=== PATIENT | female | born 1995 | race Caucasian/White ===

== ENCOUNTER → 2018-07-01 | Outpatient (CLI) | payer BC ==
--- NOTE | 2018-07-01 16:02 | US ---
EXAMINATION TYPE: Transabdominal DATE OF EXAM: 07/01/2018 3:32 PM COMPARISON: NONE CLINICAL HISTORY: O00.09 ECTOPIC . Intermittent left pelvic pain x 7 weeks, 1 EXAM PERFORMED: Transabdominal (TA) EXAM MEASUREMENTS: GESTATIONAL AGE / DATING Physician Established: (7 weeks/5 days) EDC: 02/12/2019 Dates by LMP: (7 weeks/5 days) EDC: 02/12/2019 Dates by First Scan: This is 1st scan Dates by Current Scan for: ( 7 weeks/4 days) EDC: 02/13/2019 MATERNAL ANATOMY Uterus: 10.0 x 5.5 x 5.4cm Right Ovary: 3.1 x 2.0 x 2.3cm Left Ovary: 4.2 x 2.5 x 2.4cm Post CDS / Adnexa: wnl Presence of free fluid: no Presence of corpus luteal cyst: left ovary: 2.5 x 1.6 x 1.8cm hypoechoic area Presence of subchorionic bleed: no GESTATION / SURVEY CRL: 1.3cm (7 weeks/4 days) Yolk Sac (normal less than 6mm): 4.0mm Heart Rate: 154 bpm Rhythm: Normal IUP: Viable IUP Date of LMP: 05/08/2018 Beta HcG (if available): Not available at time of exam. IMPRESSION: Single intrauterine gestation estimated at 7 weeks 4 days gestation based on the crown-rump length me asurement. Cardiac activity measures 154 bpm.
== END | disposition home or self-care (01) ==
LOC: RADUSWWP 14:55
PROVIDERS: ATTEND Obstetrics & Gynecology
DX: O26.891 Other specified pregnancy related conditions, first trimester (principal); Z3A.01 Less than 8 weeks gestation of pregnancy
CPT/HCPCS: 76801

== ENCOUNTER → 2018-12-01 | Outpatient (CLI) | payer BC ==
--- NOTE | 2018-12-01 12:39 | US ---
EXAMINATION TYPE: US gallbladder DATE OF EXAM: 12/01/2018 COMPARISON: NONE CLINICAL HISTORY: 23-year-old female K81.9 Cholecystitis. EXAM MEASUREMENTS: Liver Length: 15.5 cm Gallbladder Wall: 0.3 cm CBD: 0.4 cm Right Kidney: 11.6 x 4.2 x 4.8 cm PIPE LINE MAINTENANCE SUPERVISOR NOTES: patient, large body habitus technically difficult study. Pancreas: Obscured by bowel gas Liver: appears wnl as seen, limited views, only able to scan intercostally, echogenic focus measuring 0.7 x 0.7 x 0.6cm, probable hemangioma. Gallbladder: wnl Evidence for sonographic Jimenez's sign: No CBD: very limited visualization. Visualized portion is normal caliber. Right Kidney: partially obscured by overlying bowel gas, no hydronephrosis. IMPRESSION: 1. Technical limitations as above. 2. 7 mm echogenic lesion in the left hepatic lobe likely represents a small hemangioma. Six-month fol low-up liver ultrasound recommended to reassess. 3. No cholelithiasis, acute cholecystitis, or biliary ductal dilatation.
== END | disposition home or self-care (01) ==
LOC: RADUSWWP 08:19
PROVIDERS: ATTEND Obstetrics & Gynecology
DX: K81.9 Cholecystitis, unspecified (principal)
CPT/HCPCS: 76705

== ENCOUNTER 2018-12-02 22:55 | Observation (INO) | payer BC ==
[2018-12-03] MEDS ORDERED: BUTORPHANOL 1 MG/ML 1 ML VIAL IV PRN ×2 (00:25→03:17)
[2018-12-03] MEDS: LACTATED RINGERS 1,000 ML IV SCH ×3 (00:29→23:08)
[2018-12-03 00:34] LABS: Basophils # (A) 0.1 k/uL (0-0.2); Basophils % (A) 0 %; Eosinophils # (A) 0.2 k/uL (0-0.7); Eosinophils % (A) 2 %; HCT 32.9 % (34.0-46.0); Lymphocytes # (A) 2.6 k/uL (1.0-4.8); Lymphocytes % (A) 22 %; MCH 28.8 pg (25.0-35.0); MCHC 33.6 g/dL (31.0-37.0); MCV 85.8 fL (80.0-100.0); Mean Platelet Volume 7.4; Monocytes # (A) 0.6 k/uL (0-1.0); Monocytes % (A) 5 %; Neutrophils % (A) 69 %; Platelet Count 373 k/uL (150-450); RBC 3.83 m/uL (3.80-5.40); RDW 14.1 % (11.5-15.5); WBC 11.5 k/uL (3.8-10.6)
[2018-12-03 00:37] LABS: Appearance,Urine Clear (Clear); Bilirubin,Urine Negative (Negative); Blood,Urine Negative (Negative); Color,Urine Light Yellow; Glucose,Urine (UA) Trace (Negative); Ketones,Urine Negative (Negative); Leukocyte Esterase,Urine Negative (Negative); Nitrite,Urine Negative (Negative); PH, Urine 5.5 (5.0-8.0); Protein,Urine Negative (Negative); Specific Gravity,Urine 1.013 (1.001-1.035); Urobilinogen,Urine <2.0 mg/dL (<2.0)
--- NOTE | 2018-12-03 00:42 | P.HPOB ---
History of Present Illness H&P Date: 12/02/18 Chief Complaint: Right upper quadrant pain: at Akira is a 23-year-old G3 1 P0 at 29 weeks 5 days gestation arrives complaining of severe right upper quadrant pain. She relates that the pain began early this afternoon and that it made her short of breath and she had a very difficult time functioning. She relates that for lunch she had a protein shake but the shortness of breath and the pain did produce some and then she had dinner at approximately 6:30 in the evening she 8 defense a lot is and shortly thereafter she began having severe pain with again acute shortness of breath difficult to catch her breath due to the pain. She had previously been seen in my office for this pain approximately 2 weeks ago we at that time had discussed and made point of having her try and eat very bland foods a possibility that this was gallbladder disease. She did actually felt a little bit better than her last appointment we did order an ultrasound of the gallbladder. Ultrasound gallbladder was done yesterday reveals no gallstones and was basically negative other than a 7 mm possible hemangioma in the left lobe of the liver. It does appear however, that her pain is directly related to her dietary intake, and she may very well have biliary dyskinesia or other GI issue. It does not appear that the is the cause of her pain at this time. We'll order H pylori testing and CMP with amylase lipase 2 try and get a better clarification for her pain. Laboratory is pending at this time. Vital signs are however stable. She is afebrile. She has no acute dyspnea and no shortness of breath at times in evaluating her. There is no chest pain there is no pain in her cardiac region no pain that it extends into the shoulders or into the neck or arms. Pain is almost exclusively epigastric and predominantly related to the right side. On physical exam heart regular, lungs clear and extremities are without pain. Abdomen is soft obese and she does have pain to the right upper quadrant over moving just medial towards the xiphoid process. It was noted on her monitor strip, she was having some irregular what appeared to be nonpainful contractions and therefore a digital exam was done and she is closed thick and very high. Cervix is posterior in the vagina. heart tones were in the 130s to 150s and appear reassuring. Assessment right upper quadrant abdominal pain without gallstones Plan observation and IV pain control tonight. Plan for general surgical consultation or GI consultation tomorrow if possible. We've previously discussed these consultations but she had declined earlier in the . Past Medical History History of Any Multi-Drug Resistant Organisms: None Reported Smoking Status: Never smoker Medications and Allergies Home Medications Medication Instructions Recorded Confirmed Type Pnv 11/Iron Fum/Folic Acid/Om3 1 each PO DAILY 12/02/18 12/02/18 History [Virt-Vikram Dha Softgel] Allergies Allergy/AdvReac Type Severity Reaction Status Date / Time No Known Allergies Allergy Verified 12/02/18 23:02 Exam Osteopathic Statement: *. No significant issues noted on an osteopathic structural exam other than those noted in the History and Physical/Consult. Intake and Output 12/02/18 12/02/18 12/03/18 14:59 22:59 06:59 Other: Weight 108.862 kg
[2018-12-03 00:47] LABS: ALT 11 U/L (9-52); AST 15 U/L (14-36); African American GFR (CKD) >90 (>60 ml/min/1.73 sqM); Albumin 3.7 g/dL (3.5-5.0); Alkaline Phosphatase 55 U/L (38-126); Amylase 53 U/L (30-110); Anion Gap 8 mmol/L; Blood Urea Nitrogen 11 mg/dL (7-17); Calcium 9.2 mg/dL (8.4-10.2); Carbon Dioxide 21 mmol/L (22-30); Chloride 107 mmol/L (98-107); Glucose 119 mg/dL (74-99); Potassium 4.3 mmol/L (3.5-5.1); Sodium 136 mmol/L (137-145); Total Bilirubin 0.1 mg/dL (0.2-1.3); Total Protein 6.6 g/dL (6.3-8.2)
[2018-12-03 01:59] VITALS: BMI 37.5
--- NOTE | 2018-12-03 08:14 | P.PN ---
Progress Note - Text Progress Note Date: 12/03/18 Patient seen and evaluated this morning, she relates that her pain is somewhat improved but to some degree still present. We are awaiting surgical consultation, she may need GI consultation or medical consultation if it doesn't seem that the diagnosis is biliary dyskinesia. However this morning, she feels improved and she does not have an appetite's we'll continue to be nothing by mouth until evaluated later.
--- NOTE | 2018-12-03 12:16 | P.GSCN ---
<Taylor Pierce - Last Filed: 12/03/18 12:07> History of Present Illness Consult date: 12/03/18 Reason for Consult: biliary dyskinesia Requesting physician: Presley Zamora History of present illness: CHIEF COMPLAINT: right upper quadrant pain HISTORY OF PRESENT ILLNESS: 23-year-old female who is currently 29 weeks who has been experiencing right upper quadrant pain intermittently over the last 4-5 weeks. Patient reports she has been expressing nausea and vomiting since the beginning of her but states it has been worse the last trimester. she does report some pain in the middle of her back. patient had a gallbladder ultrasound performed on 12/07/2018 revealing 7 mm echogenic lesion in the left hepatic lobe likely representing a small hemangioma. No cholelithiasis. No evidence for acute cholecystitis or biliary duct dilation. CMP was within normal limits. patient was recommended to follow a bland low-fat diet by her COMMERCIAL ILLUSTRATOR. Patient reports she saw a dietitian recently and was educated on her nutrition. Patient and reported the patient has been eating a lot of salads. However, when speaking to the patient's nurse the patient ate a large milkshake and enchiladas prior to this most recent episode of right upper quadrant pain. Patient reports her younger sister recently underwent cholecystectomy. She also reports that her mother had a cholecystectomy shortly after giving to her. PAST MEDICAL HISTORY: See list. PAST SURGICAL HISTORY: See list. SOCIAL HISTORY: No illicit drug use. REVIEW OF SYSTEMS: CONSTITUTIONAL: Denies fever or chills. HEENT: Denies blurred vision, vision changes, or eye pain. Denies hemoptysis CARDIOVASCULAR: Denies chest pain or pressure. RESPIRATORY: No shortness of breath. GASTROINTESTINAL: Refer to HPI for pertinent findings HEMATOLOGIC: Denies bleeding disorders. GENITOURINARY: Denies any blood in urine. SKIN: Denies pruitis. Denies rash. PHYSICAL EXAM: VITAL SIGNS: Reviewed. GENERAL: Well-developed in no acute distress. HEENT: No sclera icterus. Extraocular movements grossly intact. Moist buccal mucosa. Head is atraumatic, normocephalic. ABDOMEN: Patient currently . Soft. Patient with right upper quadrant tenderness with palpation. NEUROLOGIC: Alert and oriented. Cranial nerves II through XII grossly intact. ASSESSMENT: 1. Right upper quadrant pain 2. Suspected gallbladder dyskinesia, US negative for acute cholecystitis 3. Family history of gallbladder disease PLAN: 1. Ok for clear liquid diet at this time. Recommend low fat diet at time of discharge. 2. HIDA scan not recommended at this time secondary to 3. Further recommendations pending evaluation by Dr. Adam this afternoon Nurse practitioner note has been reviewed by physician. Signing provider agrees with the documented findings, assessment, and plan of care. Past Medical History Past Medical History: No Reported History History of Any Multi-Drug Resistant Organisms: None Reported Past Surgical History: No Surgical Hx Reported Past Anesthesia/Blood Transfusion Reactions: No Reported Reaction Past Psychological History: No Psychological Hx Reported Smoking Status: Never smoker Past Alcohol Use History: None Reported Past Drug Use History: None Reported - Past Family History Mother Family Medical History: No Reported History Medications and Allergies Home Medications Medication Instructions Recorded Confirmed Type Pnv 11/Iron Fum/Folic Acid/Om3 1 each PO DAILY 12/02/18 12/02/18 History [Virt-Vikram Dha Softgel] Allergies Allergy/AdvReac Type Severity Reaction Status Date / Time No Known Allergies Allergy Verified 12/02/18 23:02 Surgical - Exam Vital Signs Temp Pulse Resp BP Pulse Ox 98.3 F 96 16 110/52 98 12/03/18 08:00 12/03/18 08:00 12/03/18 08:00 12/03/18 08:00 12/03/18 08:00 Results - Labs 12/03/18 00:20 12/03/18 00:20 Abnormal Lab Results - Last 24 Hours (Table) 12/03/18 12/03/18 12/03/18 Range/Units 00:20 00:20 00:20 WBC 11.5 H (3.8-10.6) k/uL Hgb 11.0 L (11.4-16.0) gm/dL Hct 32.9 L (34.0-46.0) % Neutrophils # 8.0 H (1.3-7.7) k/uL Sodium 136 L (137-145) mmol/L Carbon Dioxide 21 L (22-30) mmol/L Glucose 119 H (74-99) mg/dL Total Bilirubin 0.1 L (0.2-1.3) mg/dL Urine Glucose (UA) Trace H (Negative) Diabetes panel 12/03/18 Range/Units 00:20 Sodium 136 L (137-145) mmol/L Potassium 4.3 (3.5-5.1) mmol/L Chloride 107 (98-107) mmol/L Carbon Dioxide 21 L (22-30) mmol/L BUN 11 (7-17) mg/dL Creatinine 0.63 (0.52-1.04) mg/dL Glucose 119 H (74-99) mg/dL Calcium 9.2 (8.4-10.2) mg/dL AST 15 (14-36) U/L ALT 11 (9-52) U/L Alkaline Phosphatase 55 (38-126) U/L Total Protein 6.6 (6.3-8.2) g/dL Albumin 3.7 (3.5-5.0) g/dL Calcium panel 12/03/18 Range/Units 00:20 Calcium 9.2 (8.4-10.2) mg/dL Albumin 3.7 (3.5-5.0) g/dL Pituitary panel 12/03/18 Range/Units 00:20 Sodium 136 L (137-145) mmol/L Potassium 4.3 (3.5-5.1) mmol/L Chloride 107 (98-107) mmol/L Carbon Dioxide 21 L (22-30) mmol/L BUN 11 (7-17) mg/dL Creatinine 0.63 (0.52-1.04) mg/dL Glucose 119 H (74-99) mg/dL Calcium 9.2 (8.4-10.2) mg/dL Adrenal panel 12/03/18 Range/Units 00:20 Sodium 136 L (137-145) mmol/L Potassium 4.3 (3.5-5.1) mmol/L Chloride 107 (98-107) mmol/L Carbon Dioxide 21 L (22-30) mmol/L BUN 11 (7-17) mg/dL Creatinine 0.63 (0.52-1.04) mg/dL Glucose 119 H (74-99) mg/dL Calcium 9.2 (8.4-10.2) mg/dL Total Bilirubin 0.1 L (0.2-1.3) mg/dL AST 15 (14-36) U/L ALT 11 (9-52) U/L Alkaline Phosphatase 55 (38-126) U/L Total Protein 6.6 (6.3-8.2) g/dL Albumin 3.7 (3.5-5.0) g/dL <Karlos Adam - Last Filed: 12/03/18 14:54> History of Present Illness History of present illness: As above. Patient with right upper quadrant pain. Ultrasound reviewed. No evidence of cholecystitis or gallstones currently. Resume diet. Begin him. Antiacids given the patient's personal history of peptic ulcer disease. Follow- up in the office as an outpatient. Surgical - Exam Vital Signs Temp Pulse Resp BP Pulse Ox 98.3 F 96 16 110/52 98 12/03/18 08:00 12/03/18 08:00 12/03/18 08:00 12/03/18 08:00 12/03/18 08:00 Results - Labs 12/03/18 00:20 12/03/18 00:20 Abnormal Lab Results - Last 24 Hours (Table) 12/03/18 12/03/18 12/03/18 Range/Units 00:20 00:20 00:20 WBC 11.5 H (3.8-10.6) k/uL Hgb 11.0 L (11.4-16.0) gm/dL Hct 32.9 L (34.0-46.0) % Neutrophils # 8.0 H (1.3-7.7) k/uL Sodium 136 L (137-145) mmol/L Carbon Dioxide 21 L (22-30) mmol/L Glucose 119 H (74-99) mg/dL Total Bilirubin 0.1 L (0.2-1.3) mg/dL Urine Glucose (UA) Trace H (Negative) Diabetes panel 12/03/18 Range/Units 00:20 Sodium 136 L (137-145) mmol/L Potassium 4.3 (3.5-5.1) mmol/L Chloride 107 (98-107) mmol/L Carbon Dioxide 21 L (22-30) mmol/L BUN 11 (7-17) mg/dL Creatinine 0.63 (0.52-1.04) mg/dL Glucose 119 H (74-99) mg/dL Calcium 9.2 (8.4-10.2) mg/dL AST 15 (14-36) U/L ALT 11 (9-52) U/L Alkaline Phosphatase 55 (38-126) U/L Total Protein 6.6 (6.3-8.2) g/dL Albumin 3.7 (3.5-5.0) g/dL Calcium panel 12/03/18 Range/Units 00:20 Calcium 9.2 (8.4-10.2) mg/dL Albumin 3.7 (3.5-5.0) g/dL Pituitary panel 12/03/18 Range/Units 00:20 Sodium 136 L (137-145) mmol/L Potassium 4.3 (3.5-5.1) mmol/L Chloride 107 (98-107) mmol/L Carbon Dioxide 21 L (22-30) mmol/L BUN 11 (7-17) mg/dL Creatinine 0.63 (0.52-1.04) mg/dL Glucose 119 H (74-99) mg/dL Calcium 9.2 (8.4-10.2) mg/dL Adrenal panel 12/03/18 Range/Units 00:20 Sodium 136 L (137-145) mmol/L Potassium 4.3 (3.5-5.1) mmol/L Chloride 107 (98-107) mmol/L Carbon Dioxide 21 L (22-30) mmol/L BUN 11 (7-17) mg/dL Creatinine 0.63 (0.52-1.04) mg/dL Glucose 119 H (74-99) mg/dL Calcium 9.2 (8.4-10.2) mg/dL Total Bilirubin 0.1 L (0.2-1.3) mg/dL AST 15 (14-36) U/L ALT 11 (9-52) U/L Alkaline Phosphatase 55 (38-126) U/L Total Protein 6.6 (6.3-8.2) g/dL Albumin 3.7 (3.5-5.0) g/dL
[2018-12-03] MEDS: FAMOTIDINE 20 MG/2 ML VIAL IV SCH (16:42)
[2018-12-03 20:01] VITALS: BP 120/60; PULSE 95; RESP 18; TEMP 97.8
[2018-12-04] MEDS: FAMOTIDINE 20 MG/2 ML VIAL IV SCH (04:35)
--- NOTE | 2018-12-04 09:12 | P.DS ---
Providers Date of admission: 12/03/18 00:47 Expected date of discharge: 12/04/18 Attending physician: Presley Zamora Consults: 12/03/18 00:42 Consult Physician Urgent Consulting Provider: Karlos Adam Consult Reason/Comments: biliary dyskinesia Do you want consulting provider notified?: Yes Primary care physician: Stated None Hospital Course: Patient seen and evaluated. She relates that she is feeling improved and is tolerating a diet. We'll plan to discharge her to home today. Prescription for [place] and Pepcid provided. She is aware to use [place] only extremely sparingly and only if in severe pain to try and keep her from having to come to the hospital. Her vital signs are otherwise stable and afebrile. Heart regular, lungs clear, extremities without pain. Abdomen soft nontender. Does still have some right upper quadrant pain please see surgical evaluation for information regarding this. Assessment intrauterine at 30 weeks with suspected biliary dyskinesia or peptic ulcer. Plan discharged home follow up with me in 1 week. Patient Condition at Discharge: Good Plan - Discharge Summary New Discharge Prescriptions: New Famotidine [Pepcid] 20 mg PO DAILY #30 tablet HYDROcodone/APAP 5-325MG [[place] 5-325] 1 tab PO Q4HR PRN #30 tab PRN Reason: Pain Famotidine [Pepcid] 20 mg PO BID #60 tablet No Action Pnv 11/Iron Fum/Folic Acid/Om3 [Virt-Vikram Dha Softgel] 1 each PO DAILY Discharge Medication List Pnv 11/Iron Fum/Folic Acid/Om3 [Virt-Vikram Dha Softgel] 1 each PO DAILY 12/02/18 [History] Famotidine [Pepcid] 20 mg PO DAILY #30 tablet 12/03/18 [Rx] Famotidine [Pepcid] 20 mg PO BID #60 tablet 12/04/18 [Rx] HYDROcodone/APAP 5-325MG [[place] 5-325] 1 tab PO Q4HR PRN #30 tab 12/04/18 [Rx] Follow up Appointment(s)/Referral(s): Karlos Adam MD [Medical Doctor] - As Needed (follow up after delivery for further evaluation) Discharge Disposition: HOME SELF-CARE
[2018-12-04] MEDS ORDERED: FAMOTIDINE 20 MG TAB PO SCH (21:00)
== END 2018-12-04 09:45 | disposition home or self-care (01) ==
LOC: FBPOP 22:55 → 4FBP 12-03 00:47
PROVIDERS: ADMIT Obstetrics & Gynecology; ATTEND Obstetrics & Gynecology
DX: O26.613 Liver and biliary tract disorders in pregnancy, third trimester (principal); Z3A.29 29 weeks gestation of pregnancy; K82.8 Other specified diseases of gallbladder; O99.213 Obesity complicating pregnancy, third trimester; K76.9 Liver disease, unspecified; O21.2 Late vomiting of pregnancy; Z87.11 Personal history of peptic ulcer disease
CPT/HCPCS: 59025; 96376 ×2; 99214; 96361; 96374 ×2; 96375; 87338; 80053; 82150; 83690; 85025; 81003; G0378 ×2; J0595

== ENCOUNTER 2019-01-25 22:15 | Outpatient (CLI) | payer BC ==
[2019-01-25 22:43] LABS: Appearance,Urine Clear (Clear); Bacteria,Urine Rare /hpf; Bilirubin,Urine Negative (Negative); Blood,Urine Negative (Negative); Color,Urine Colorless; Glucose,Urine (UA) Negative (Negative); Ketones,Urine Negative (Negative); Leukocyte Esterase,Urine Large (Negative); Nitrite,Urine Negative (Negative); PH, Urine 5.5 (5.0-8.0); Protein,Urine Negative (Negative); RBC,Urine 1 /hpf (0-5); Specific Gravity,Urine 1.005 (1.001-1.035); Squamous Epithelial Cell,Urine 3 /hpf (0-4); Urobilinogen,Urine <2.0 mg/dL (<2.0); WBC,Urine 8 /hpf (0-5)
[2019-01-26] LABS: Basophils % (A) 0 %; Eosinophils # (A) 0.1 k/uL (0-0.7); Eosinophils % (A) 1 %; HCT 31.8 % (34.0-46.0); HGB 10.7 gm/dL (11.4-16.0); Hypochromasia Slight; Lymphocytes # (A) 2.3 k/uL (1.0-4.8); Lymphocytes % (A) 21 %; MCHC 33.8 g/dL (31.0-37.0); Mean Platelet Volume 7.5; Monocytes # (A) 0.6 k/uL (0-1.0); Monocytes % (A) 6 %; Neutrophils # (A) 7.7 k/uL (1.3-7.7); Neutrophils % (A) 70 %; Platelet Count 350 k/uL (150-450); Poikilocytosis Slight; RBC 3.97 m/uL (3.80-5.40); RDW 15.2 % (11.5-15.5)
[2019-01-26 00:19] LABS: ALT 21 U/L (9-52); AST 20 U/L (14-36); African American GFR (CKD) >90 (>60 ml/min/1.73 sqM); Blood Urea Nitrogen 18 mg/dL (7-17); LDH 532 U/L (313-618); Uric Acid 5.7 mg/dL (3.7-7.4)
[2019-01-26 03:45] VITALS: BP 129/77; PULSE 102; RESP 18; TEMP 98.4
--- NOTE | 2019-01-26 09:27 | P.MSEPDOC ---
Presenting Problems - Arrival Data Date of Arrival on Unit: 01/25/19 Time of Arrival on Unit: 22:15 Mode of Transport: Ambulatory - Complaint OB-Reason for Admission/Chief Complaint: Acute Nausea/Vomiting, Headache, Visual Disturbances, Elevated Blood Pressure Comment: pt presents to triage with complaints of N/V/D since Friday on way home from. appt. Dr Stephenson is main Dr. PT talked to Dr Carroll today. pt states is short of breath. took bp at home tonight and 132/91 then 148/103 then 152/109 Medical History - Information : 1 Para: 0 Term: 0 : 0 Abortions: Spontaneous or Elective: 0 Number of Living Children: 0 - Gestational Age Gestational Age by GROVER (wks/days): 37 Weeks and 4 Days - History Complications: Other Comment: scheduled c/s for 02/08 due to macrosomia Review of Systems - Review of Systems Constitutional: No problems Breast: No problems ENT: No problems Cardiovascular: No problems Respiratory: No problems Gastrointestinal: No problems Genitourinary: No problems Musculoskeletal: No problems Neurological: No problems Skin: No problems Vital Signs - Temperature Temperature: 98.4 F Temperature Source: Oral - Pulse Right Pulse Rate: 102 Pulse Assessment Method: Automatic Cuff - Respirations Respiratory Rate: 18 O2 Sat by Pulse Oximetry: 98 - Blood Pressure Left Arm Blood Pressure: 129/77 Blood Pressure Mean: 94 Blood Pressure Source: Automatic Cuff - Comment Vital Signs Comment: multiple b/ps done during stay with highest being 140/91 right after vag exam and the rest 120s to 130s / 70s and 80s. see Obix for exact. Medical Screen Scoring (Pre) - Cervical Exam Dilation: 0 cm = 0 - Uterine Contractions Frequency: > 5 minutes apart = 1 Duration: N/A Intensity: N/A - Maternal Vital Signs Maternal Temperature: N/A Maternal Blood Pressure: N/A Signs of Preeclampsia: N/A Maternal Respirations: N/A - Maternal Trauma Maternal Trauma: N/A - Assessment - Baby A Baseline FHR: 140 Heart Rate - NICHD Category: Category I (Normal) = 0 NST: Reactive - Total Score - Baby A Total Score - Baby A: 1 - Total Score - Baby B Total Score - Baby B: 1 - Total Score - Baby C Total Score - Baby C: 1 - Level of Risk - Baby A Level of Risk - Baby A: Low (0-5) - Level of Risk - Baby B Level of Risk - Baby B: Low (0-5) - Level of Risk - Baby C Level of Risk - Baby C: Low (0-5) Physician Notification (Pre) - Physician Notified Physician Notified Date: 01/26/19 Physician Notified Time: 01:25 Physician/Practitioner Notifed:: Dr Carroll New Order Received: Yes - Notification Comment Comment: Dr Carroll updated by phone of all labs, including urine protein/creatine ratio of 0.58 but all others within normal range for preg. cervix clsed. pt only feeling mild cramping with the ctxs she is having. N/V/D/SOB/Blurry vision all resolved at present. pt has appt with Dr Zamora tomorrow at 1pm. dc order received with instructions to keep tomorrows appt and return with any worsening of symptoms. also be advised home bp cuff. is most likely innaccurate Disposition - Disposition OB Disposition: Discharge to home Discharge Date: 01/26/19 Discharge Time: 01:28 I agree with the RN Medical Screening Exam: Yes Risk & Benefit of care provided described in d/c instruction: Yes Diagnosis: NAUSEA WITH VOMITING, UNSPECIFIED
== END 2019-01-26 01:28 | disposition home or self-care (01) ==
LOC: FBPOP 22:15
PROVIDERS: ATTEND Obstetrics & Gynecology
DX: O21.9 Vomiting of pregnancy, unspecified (principal); Z3A.37 37 weeks gestation of pregnancy
CPT/HCPCS: 59025; 81001; 82565; 82570; 83615; 84156; 84450; 84460; 84520; 84550; 85025; 99213

== ENCOUNTER 2019-01-26 14:31 | Inpatient (IN) | payer BC ==
[2019-01-26 18:12] VITALS: BMI 40.7
[2019-01-26] MEDS ORDERED: CITRIC ACID-SODIUM CITRATE 15 ML CUP PO ONE (18:15)
[2019-01-26] MEDS ORDERED: ceFAZolin 3 GM in SODIUM CHLORIDE 0.9% 100 ML IVPB ONE (18:15)
[2019-01-26] MEDS ORDERED: LACTATED RINGERS 1,000 ML IV ONE (18:15)
[2019-01-26 18:42] LABS: Basophils # (A) 0.1 k/uL (0-0.2); Basophils % (A) 1 %; Eosinophils # (A) 0.1 k/uL (0-0.7); Eosinophils % (A) 1 %; HCT 33.4 % (34.0-46.0); HGB 11.2 gm/dL (11.4-16.0); Hypochromasia Slight; Lymphocytes # (A) 1.8 k/uL (1.0-4.8); Lymphocytes % (A) 15 %; MCH 26.7 pg (25.0-35.0); MCHC 33.5 g/dL (31.0-37.0); MCV 79.7 fL (80.0-100.0); Mean Platelet Volume 7.4; Monocytes # (A) 0.5 k/uL (0-1.0); Monocytes % (A) 4 %; Neutrophils # (A) 9.9 k/uL (1.3-7.7); Neutrophils % (A) 79 %; Platelet Count 355 k/uL (150-450); RBC 4.19 m/uL (3.80-5.40); RDW 14.1 % (11.5-15.5); WBC 12.6 k/uL (3.8-10.6)
[2019-01-26] MEDS ORDERED: MORPHINE SULFATE (PF) 0.3 MG/0.3 ML SYR ONE (19:08)
[2019-01-26] MEDS ORDERED: OXYTOCIN 10 UNIT/ML 1 ML VIAL ONE (19:08)
[2019-01-26] MEDS ORDERED: ONDANSETRON 4 MG/2 ML VIAL ONE (19:08)
[2019-01-26] MEDS ORDERED: NALBUPHINE 10 MG/ML (1 ML AMP) ONE (19:08)
[2019-01-26] MEDS ORDERED: KETOROLAC 30 MG/ML 1 ML VIAL ONE (19:08)
[2019-01-26] MEDS ORDERED: diphenhydrAMINE 25 MG CAP PO PRN (19:57)
[2019-01-26] MEDS ORDERED: ONDANSETRON 4 MG/2 ML VIAL IVP PRN (19:57)
[2019-01-26] MEDS ORDERED: SIMETHICONE 80 MG CHEWABLE PO PRN (19:57)
[2019-01-26] MEDS ORDERED: METOCLOPRAMIDE 5 MG/ML 2 ML VIAL IVP PRN (19:57)
[2019-01-26] MEDS ORDERED: MEASLES-MUMPS-RUBELLA VACC/PF 12,500 UNIT/0.5 ML VIAL SQ ONE (19:57)
[2019-01-26] MEDS ORDERED: ACETAMINOPHEN TAB 325 MG TAB PO PRN (19:57)
[2019-01-26] MEDS ORDERED: diphenhydrAMINE 50 MG CAP PO PRN (19:57)
[2019-01-26] MEDS ORDERED: diphenhydrAMINE 50 MG/ML 1 ML VIAL IVP PRN ×2 (19:57)
[2019-01-26] MEDS ORDERED: ZOLPIDEM 5 MG TAB PO PRN (19:57)
[2019-01-26] MEDS ORDERED: NALOXONE 0.4 MG/ML 1 ML VIAL IV PRN (19:57)
[2019-01-26] MEDS ORDERED: LACTATED RINGERS 1,000 ML IV SCH (20:00)
--- NOTE | 2019-01-26 20:04 | P.HPOB ---
History of Present Illness H&P Date: 01/26/19 Chief Complaint: Intrauterine : Macrosomia: Gestational hypertension Patient is a 23-year-old at 37 weeks 40s gestation who was seen in the office today with mild elevation blood pressure at 140 she had a lipid blood pressure home last night of 140/109. She was seen in triage had normal preeclamptic labs and normal blood pressures during that stay. She was sent over to the hospital for continued monitoring and during the course of the next proximally 2 hours she had at least 2 pressures that were both either 140 or 90. She also had some mild symptoms she had a mild headache but certainly no severe headache indicative of preeclampsia she had however significant swelling 2-3+ pitting edema and 3+ deep tendon reflexes. She had trace protein in her P today and negative last night. Due to the findings and symptoms consistent with gestational hypertension she was admitted for primary section for macrosomia. Ultrasound done in late December showed baby was above the 99th percentile for dates. She had 09 November the had shown approximately 84th percentile. Her pertinent labs. The did include A+ blood type, Rh antibody was negative, rubella was nonimmune and hepatitis B surface and was negative. She did have a positive group B strep status but is intact. It is noted that she did fail her 1 hour Glucola screen but passed her 3 her Glucola screening with only one abnormal value and was sent to diabetic education/nutrition for evaluation of diet. She also had significant right upper quadrant pain in November with suspicion of biliary dyskinesia. She was seen by general surgery and a full evaluation was done at that time. 8 change in her dietary habits did help resolve this symptomatology throughout the remainder of the . She also had an episode where she has significant itching was put on a steroid cream for that itching but this also resolved. At this time she is feeling well although somewhat anxious prior to the section, she is also having contractions. She relates that she had been throwing up and had diarrhea over the last 1 or 2 days as well just to save some of this isn't flulike symptoms but at up and about as a precaution particular with macrosomia and other problems and competitions through the we will proceed with a primary section tonight. On physical exam vital signs are otherwise stable. Heart regular, lungs clear, extremities without pain. Abdomen is soft gravid uterus is noted. There is 2+ to 3+ pitting edema and 3+ deep tendon reflexes as noted previously. Assessment intrauterine at term with macrosomia and gestational hypertension Plan primary low transverse section Past Medical History Past Medical History: No Reported History History of Any Multi-Drug Resistant Organisms: None Reported Past Surgical History: No Surgical Hx Reported Past Anesthesia/Blood Transfusion Reactions: No Reported Reaction Past Psychological History: No Psychological Hx Reported Smoking Status: Never smoker Past Alcohol Use History: None Reported Past Drug Use History: None Reported - Past Family History Mother Family Medical History: No Reported History Medications and Allergies Home Medications Medication Instructions Recorded Confirmed Type Pnv,Calcium 72/Iron/Folic Acid 1 tab PO DAILY 01/26/19 01/26/19 History [ Plus Tablet] Allergies Allergy/AdvReac Type Severity Reaction Status Date / Time No Known Allergies Allergy Verified 01/26/19 18:06 Exam Osteopathic Statement: *. No significant issues noted on an osteopathic structural exam other than those noted in the History and Physical/Consult. Vital Signs Temp Pulse Resp BP Pulse Ox 01/26/19 18:07 97.7 F 110 H 18 138/71 01/26/19 15:43 98.5 F 100 20 127/80 98 Intake and Output 01/26/19 01/26/19 01/26/19 06:59 14:59 22:59 Other: Weight 121.563 kg Results Result Diagrams: 01/26/19 06:15 Abnormal Lab Results - Last 24 Hours (Table) 01/26/19 Range/Units 06:15 WBC 12.6 H (3.8-10.6) k/uL Hgb 11.2 L (11.4-16.0) gm/dL Hct 33.4 L (34.0-46.0) % MCV 79.7 L (80.0-100.0) fL Neutrophils # 9.9 H (1.3-7.7) k/uL
--- NOTE | 2019-01-26 20:30 | P.OP ---
Date of Procedure: 01/26/19 Preoperative Diagnosis: Intrauterine at term: Macrosomia: Gestational hypertension Postoperative Diagnosis: Same Procedure(s) Performed: Primary low transverse section Anesthesia: spinal Surgeon: Presley Zamora Dye Stand Loader #1: Mena Peck Estimated Blood Loss (ml): 600 IV fluids (ml): 1,000 Urine output (ml): 200 Pathology: other (Placenta) Condition: stable Disposition: floor Operative Findings: Male scores of 8 and 9 at one and 5 minutes Lopez weight was 10 lbs. 6 oz. Description of Procedure: Patient was taken to the operating suite where a spinal anesthetic was found be adequate. She was prepped and draped in the normal sterile fashion and placed in the dorsal supine position with leftward tilt. Initially a Pfannenstiel skin incision was made this incision was then carried through to underlying layer of the fascia was second knife. Fascia was then nicked in the midline and this opening was extended laterally with Mina scissors. Superior and inferior aspect of this incision were then grasped tented up and bluntly and sharply dissected off the rectus muscles. Rectus muscles were then divided the midline and blunt dissection through the peritoneum was made. This opening was then extended superiorly and inferiorly with good visualization of both bowel bladder. Bladder flap was then identified and entered with Metzenbaum scissors. This opening was then extended across face of the uterus with Metzenbaum scissors and her bladder flap was digitally created. Knife was then used to incise uterus this opening was then fully developed with hemostat and extended bluntly. Head was then H medically delivered without difficulty and anterior posterior shoulders were then easily delivered following bulb suctioning of both mouth and nares. Once baby was fully delivered umbilical cord was clamped and cut in usual fashion an nursery personnel was present and assumed care. Placenta was then delivered intact and Pitocin was added to the IV. Uterus was then exteriorized cleared of clots and debris and closed in 2 layers with 0 Vicryl suture. Once hemostasis was obtained 3-0 Vicryl reapproximated the bladder flap and blood and debris was suctioned from the posterior cul-de-sac. Uterus was then reinserted into the abdomen and peritoneal layer was reapproximated with 0 Vicryl suture. Fascial layer was closed with 0 Vicryl suture. One layer of 3-0 Vicryl was placed in the deep subcuticular tissues to reapproximate the skin. Skin was then closed with 3-0 Vicryl subcuticular. Sponge, lap and needle counts were all correct 2. Patient was then taken to the recovery room in stable and satisfactory condition.
[2019-01-26] MEDS: SENNOSIDES-DOCUSATE SODIUM 1 EACH TAB PO SCH (23:06)
[2019-01-27] MEDS: KETOROLAC 30 MG/ML 1 ML VIAL IVP PRN ×3 (01:53→14:08)
[2019-01-27 07:27] LABS: Basophils % (A) 0 %; Eosinophils # (A) 0.1 k/uL (0-0.7); Eosinophils % (A) 1 %; HCT 26.6 % (34.0-46.0); Hypochromasia Slight; Lymphocytes # (A) 1.4 k/uL (1.0-4.8); Lymphocytes % (A) 13 %; MCHC 33.6 g/dL (31.0-37.0); MCV 80.3 fL (80.0-100.0); Mean Platelet Volume 7.9; Monocytes # (A) 0.5 k/uL (0-1.0); Monocytes % (A) 5 %; Neutrophils # (A) 9.1 k/uL (1.3-7.7); Neutrophils % (A) 81 %; Platelet Count 251 k/uL (150-450); Poikilocytosis Slight; RBC 3.31 m/uL (3.80-5.40); RDW 15.1 % (11.5-15.5); WBC 11.2 k/uL (3.8-10.6)
[2019-01-27 07:51] LABS: HGB 8.9 gm/dL (11.4-16.0)
[2019-01-27] MEDS: SENNOSIDES-DOCUSATE SODIUM 1 EACH TAB PO SCH ×2 (08:16→20:26)
--- NOTE | 2019-01-27 08:24 | P.PNOBGPC ---
Subjective - Subjective Principal diagnosis: Postoperative want Interval history: Overall doing very well this morning. Involuting, starting to void, and tolerating liquid diet. Vital signs stable afebrile. Patient reports: Reports appetite normal : doing well Objective - Vital Signs Latest vital signs: Vital Signs Temp Pulse Resp BP Pulse Ox 01/27/19 04:00 97.6 F 81 16 130/69 96 01/27/19 01:30 98.1 F 78 17 124/79 97 01/26/19 22:07 98.2 F 87 18 123/76 99 01/26/19 21:37 98.2 F 76 18 122/75 99 01/26/19 21:07 98.2 F 81 18 123/64 97 01/26/19 20:52 96.2 F L 74 17 117/65 98 01/26/19 20:37 92 18 114/60 97 01/26/19 20:22 96.1 F L 79 18 117/67 98 01/26/19 20:07 96.8 F L 85 18 113/73 98 01/26/19 18:07 97.7 F 110 H 18 138/71 01/26/19 15:43 98.5 F 100 20 127/80 98 Intake and Output 01/26/19 01/27/19 01/27/19 22:59 06:59 14:59 Intake Total 200 Output Total 150 200 Balance -150 0 Intake: Oral 200 Output: Urine 150 200 Uretheral (Rod) 200 Other: Voiding Method Indwelling Catheter - Exam Lungs: bilateral: normal Chest: Normal S1, Normal S2 Extremities: Present: normal Abdomen: Present: normal appearance, soft. Absent: distention, tenderness Incision: Present: normal, dry, intact Uterus: Present: normal, firm - Labs Labs: Abnormal Lab Results - Last 24 Hours (Table) 01/26/19 01/27/19 Range/Units 06:15 06:43 WBC 12.6 H 11.2 H (3.8-10.6) k/uL RBC 3.31 L (3.80-5.40) m/uL Hgb 11.2 L 8.9 L D (11.4-16.0) gm/dL Hct 33.4 L 26.6 L (34.0-46.0) % MCV 79.7 L (80.0-100.0) fL Neutrophils # 9.9 H 9.1 H (1.3-7.7) k/uL
--- NOTE | 2019-01-27 13:33 | P.PN ---
Subjective Progress Note Date: 01/27/19 Patient was given intrathecal Duramorph on 01/26/19 for . This morning, vital signs are stable. The patient denies itching, nausea, vomiting, urinary retention, excessive sedation, respiratory depression, or headache. Patient endorses mild back pain from needle placement but also denies new-onset fever, weakness, or bowel/bladder incontinence. Her pain score is: 1 Pain medications per primary service; please call back with any further questions. Sony Rutledge MD Objective - Vital Signs Vital signs: Vital Signs Temp 97.6 F 01/27/19 08:00 Pulse 96 01/27/19 08:00 Resp 20 01/27/19 08:00 BP 131/79 01/27/19 08:00 Pulse Ox 97 01/27/19 08:00 Intake & Output 01/26/19 01/27/19 01/27/19 18:59 06:59 18:59 Intake Total 200 Output Total 350 20 Balance -150 -20 Weight 121.563 kg Intake: Oral 200 Output: Urine 350 20 Uretheral (Rod) 200 Other: Voiding Method Indwelling Catheter # Voids 1 - Labs CBC & Chem 7: 01/27/19 06:43 Labs: Abnormal Lab Results - Last 24 Hours (Table) 01/26/19 01/27/19 Range/Units 06:15 06:43 WBC 12.6 H 11.2 H (3.8-10.6) k/uL RBC 3.31 L (3.80-5.40) m/uL Hgb 11.2 L 8.9 L D (11.4-16.0) gm/dL Hct 33.4 L 26.6 L (34.0-46.0) % MCV 79.7 L (80.0-100.0) fL Neutrophils # 9.9 H 9.1 H (1.3-7.7) k/uL
[2019-01-27] MEDS: IBUPROFEN 600 MG TAB PO PRN (20:25)
[2019-01-27] MEDS: HYDROcodone/APAP 7.5-325MG 1 EACH TAB PO PRN (23:38)
[2019-01-28] MEDS: IBUPROFEN 600 MG TAB PO PRN ×2 (05:29→12:50)
--- NOTE | 2019-01-28 08:33 | P.PNOBGPC ---
Subjective - Subjective Principal diagnosis: Status post primary section postoperative day #2 Interval history: Patient is doing okay. She is passing flatus but no bowel movement yet. Lochia is decreasing. Pain is fairly well controlled with alternating her pain medications. She stated she did have a rough night last night though. Patient reports: Reports appetite normal, Reports voiding normally, Reports pain well controlled, Reports ambulating normally : doing well Objective - Vital Signs Latest vital signs: Vital Signs Temp Pulse Resp BP Pulse Ox 01/28/19 00:00 98.1 F 96 16 108/53 01/27/19 20:00 98.5 F 103 H 17 120/68 01/27/19 16:00 98.9 F 90 20 126/69 97 01/27/19 12:00 97.8 F 89 20 130/80 97 Intake and Output 01/27/19 01/28/19 01/28/19 22:59 06:59 14:59 Intake Total 240 Output Total 1500 Balance -1260 Intake: Oral 240 Output: Urine 1500 Other: Voiding Method Toilet # Voids 1 1 - Exam Extremities: Present: edema. Absent: tenderness Abdomen: Present: normal appearance, soft (Positive bowel sounds 4). Absent: distention, tenderness Incision: Present: normal, dry, intact. Absent: erythematous Uterus: Present: normal, firm. Absent: tenderness Assessment and Plan Assessment: Status post primary section postoperative day #2 Plan: Continue with postoperative and care. Anticipate possible discharge home tomorrow.
[2019-01-28] MEDS: HYDROcodone/APAP 7.5-325MG 1 EACH TAB PO PRN ×2 (09:14→17:25)
[2019-01-28] MEDS: SENNOSIDES-DOCUSATE SODIUM 1 EACH TAB PO SCH (09:14)
[2019-01-28 09:44] VITALS: RESP 18
[2019-01-28 15:48] VITALS: BP 132/72; PULSE 90; TEMP 98.5
--- NOTE | 2019-01-28 17:09 | P.DS ---
Providers Date of admission: 01/26/19 14:31 Expected date of discharge: 01/28/19 Attending physician: Presley Zamora Primary care physician: Stated None Hospital Course: This is a 23-year-old female 1 para 0 at 37-4/7 weeks who presented for section due to gestational hypertension and macrosomia. She underwent a primary low transverse section and delivered a viable male on 01/26/2019 with scores of 8 at 1 minute and 9 at 5 minutes and weight of 10 lbs. 6 oz. Please see history and physical for details the patient admission. Her course has been essentially uncomplicated. Her blood pressures have been normal. Vital signs are stable. Abdomen is soft with positive bowel sounds 4. Incision is clean dry and intact with Steri-Strips in place. Extremities show negative Homans. Impression is status pos primary section postoperative day #2. Plan is to discharge home today per patient request. She will be given a prescription for ibuprofen and [place]. She has signed a opioid start talking form and has been counseled on narcotic use. She is advised to follow up with Dr. Zamora in the office in 1 week. She is advised to call the office if she has any further questions or concerns prior to her appointment time. Procedures: Primary low transverse section Patient Condition at Discharge: Stable Plan - Discharge Summary New Discharge Prescriptions: New Ibuprofen [Motrin] 600 mg PO Q6HR PRN #60 tab PRN Reason: Mild Pain Or Fever >= 100.5 HYDROcodone/APAP 7.5-325MG [[place] 7.5-325] 1 each PO Q6H PRN #20 tab PRN Reason: Severe Pain Continue Pnv,Calcium 72/Iron/Folic Acid [ Plus Tablet] 1 tab PO DAILY Discharge Medication List Pnv,Calcium 72/Iron/Folic Acid [ Plus Tablet] 1 tab PO DAILY 01/26/19 [History] HYDROcodone/APAP 7.5-325MG [[place] 7.5-325] 1 each PO Q6H PRN #20 tab 01/28/19 [Rx] Ibuprofen [Motrin] 600 mg PO Q6HR PRN #60 tab 01/28/19 [Rx] Follow up Appointment(s)/Referral(s): Presley Zamora DO [Doctor of Osteopathic Medicine] - 1 Week Activity/Diet/Wound Care/Special Instructions: Instructions 1. Do not begin any exercise program for 3 weeks. 2. Do not resume sexual relations for 3 weeks or longer if uncomfortable. 3. You may take tub baths or showers at any time. 4. You may use tampons if desired after 3 weeks. 5. Keep the area of episiotomy (stitches) clean and dry. 6. If you are not nursing, wear a good fitting, supportive bra during the day and limit fluid intake for at least 1 week to prevent breast engorgement. 7. Call the office, [phone], within the next week to make appointment for your 6 week checkup if it has not already been made. 8. Report any of the following occurrences to the doctor promptly: a. Heavy, excessive bleeding b. Chills, fever c. Burning or frequency of urination d. Pain or redness and breasts if nursing e. Increasing pain or swelling in episiotomy (stitches). In addition to the above instructions, the following additional should be followed: 1. No heavy lifting or straining (exercising) until after 6 week checkup. 2. Keep abdominal incision clean and dry: You may wear a dressing if more comfortable. 3. Make office appointment for 10 days after going home or as instructed by her doctor. Discharge Disposition: HOME SELF-CARE
== END 2019-01-28 17:35 | disposition home or self-care (01) | DRG 788 ==
LOC: 4FBP 14:31
PROVIDERS: ADMIT Obstetrics & Gynecology; ATTEND Obstetrics & Gynecology
PROC: 10D00Z1 Extraction of Products of Conception, Low, Open Approach (ICD-10-PCS; principal; 2019-01-26 19:23)
DX: O36.63X0 Maternal care for excessive fetal growth, third trimester, not applicable or unspecified (principal); O13.3 Gestational [pregnancy-induced] hypertension without significant proteinuria, third trimester; Z3A.37 37 weeks gestation of pregnancy; Z37.0 Single live birth
CPT/HCPCS: 85025; 86850; 86900; 86901; 88307; 90707

== ENCOUNTER → 2019-10-14 | Outpatient (CLI) | payer BC ==
--- NOTE | 2019-10-14 08:03 | US ---
EXAMINATION TYPE: US abdomen complete DATE OF EXAM: 10/14/2019 COMPARISON: NONE CLINICAL HISTORY: R19.09 UMBILICAL MASS,R10.11 RUQ PAIN. abdominal pain near umbilicus, nausea EXAM MEASUREMENTS: Liver Length: 18.3 cm Gallbladder Wall: 0.2 cm CBD: 0.4 cm Spleen: 11.1 cm Right Kidney: 11.1 x 3.9 x 4.7 cm Left Kidney: 10.0 x 4.9 x 4.6 cm Pancreas: Obscured by bowel gas Liver: There is increased echogenicity of the hepatic parenchyma with diminished visualization of th e portal triads most commonly relating to hepatic steatosis and limiting evaluation for underlying he patic masses. Gallbladder: no evidence of stones Evidence for sonographic Jimeenz's sign: no CBD: appears wnl Spleen: wnl Right Kidney: no evidence of hydronephrosis Left Kidney: no evidence of hydronephrosis Upper IVC: wnl Abd Aorta: visualized portions appear wnl The intrahepatic portion of the IVC and proximal abdominal aorta are within normal limits. There is no evidence of cholelithiasis. Common bile duct is unremarkable. The spleen is unremarkable. Kidney s are symmetric and free of hydronephrosis. No renal lesions are seen. Periumbilical region was scan kwaku. Bowel is seen with no suspicious sonographic finding. IMPRESSION: 1. Sonographic findings most commonly related to hepatic steatosis. Correlate with liver function erik ts. 2. Obscuration of the pancreas by bowel gas. 3. No suspicious sonographic finding in the periumbilical region.
[2019-10-14 09:14] LABS: Basophils # (A) 0.1 k/uL (0-0.2); Basophils % (A) 1 %; Eosinophils # (A) 0.3 k/uL (0-0.7); Eosinophils % (A) 4 %; HCT 39.1 % (34.0-46.0); HGB 13.1 gm/dL (11.4-16.0); Lymphocytes % (A) 40 %; MCH 27.6 pg (25.0-35.0); MCHC 33.4 g/dL (31.0-37.0); MCV 82.5 fL (80.0-100.0); Mean Platelet Volume 7.4; Monocytes # (A) 0.4 k/uL (0-1.0); Monocytes % (A) 6 %; Neutrophils # (A) 3.6 k/uL (1.3-7.7); Neutrophils % (A) 47 %; Platelet Count 335 k/uL (150-450); RBC 4.74 m/uL (3.80-5.40); RDW 14.1 % (11.5-15.5); WBC 7.5 k/uL (3.8-10.6)
[2019-10-14 09:18] LABS: HCG,Qualitative Serum Not Detected
[2019-10-14 09:33] LABS: ALT 74 U/L (4-34); AST 41 U/L (14-36); African American GFR (CKD) >90 (>60 ml/min/1.73 sqM); Albumin 4.1 g/dL (3.5-5.0); Alkaline Phosphatase 44 U/L (38-126); Anion Gap 7 mmol/L; Blood Urea Nitrogen 14 mg/dL (7-17); Calcium 9.4 mg/dL (8.4-10.2); Carbon Dioxide 24 mmol/L (22-30); Chloride 106 mmol/L (98-107); Glucose 94 mg/dL (74-99); Non-African American GFR(CKD) >90 (>60 ml/min/1.73 sqM); Potassium 4.6 mmol/L (3.5-5.1); Sodium 137 mmol/L (137-145); Total Bilirubin 0.1 mg/dL (0.2-1.3); Total Protein 7.4 g/dL (6.3-8.2)
== END | disposition home or self-care (01) ==
LOC: RADUSWWP 07:07
PROVIDERS: ATTEND Family Medicine
DX: R19.09 Other intra-abdominal and pelvic swelling, mass and lump (principal); R10.11 Right upper quadrant pain
CPT/HCPCS: 36415; 76700; 80053; 84703; 85025

== ENCOUNTER → 2019-11-05 | Outpatient (CLI) | payer BC ==
--- NOTE | 2019-11-05 11:16 | NM ---
EXAMINATION TYPE: NM hepatobiliary w EF DATE OF EXAM: 11/05/2019 COMPARISON: NONE HISTORY: Pain TECHNIQUE: After the intravenous administration of 4.3 mCi Tc 99m Mebrofenin hepatobiliary scintigrap hy is performed. Immediate images post injection. FINDINGS: There is satisfactory initial accumulation of tracer by the liver. The gallbladder is visualized wit hin 15 minutes. The small bowel activity is noted within 30 minutes. At one hour 8 ounces of oral e nsure plus is given to mimic CCK and gallbladder ejection fraction is calculated at 57 %, in the norm al range. Therefore there is no scintigraphic evidence of cystic or common bile duct obstruction to suggest acute cholecystitis or gallbladder dyskinesia. IMPRESSION: Exam is within normal limits.
== END | disposition home or self-care (01) ==
LOC: RADNMMAIN 07:00
PROVIDERS: ATTEND Internal Medicine Gastroenterology
DX: R10.11 Right upper quadrant pain (principal)
CPT/HCPCS: 78226; A9537

== ENCOUNTER 2020-04-07 10:33 | Emergency (ER) | payer BC ==
[2020-04-07 11:25] LABS: Basophils # (A) 0.1 k/uL (0-0.2); Basophils % (A) 1 %; Eosinophils # (A) 0.2 k/uL (0-0.7); Eosinophils % (A) 2 %; HCT 41.4 % (34.0-46.0); HGB 13.9 gm/dL (11.4-16.0); Lymphocytes # (A) 2.2 k/uL (1.0-4.8); Lymphocytes % (A) 28 %; MCH 28.5 pg (25.0-35.0); MCHC 33.6 g/dL (31.0-37.0); MCV 84.9 fL (80.0-100.0); Mean Platelet Volume 6.9; Monocytes # (A) 0.3 k/uL (0-1.0); Monocytes % (A) 4 %; Neutrophils # (A) 5.1 k/uL (1.3-7.7); Neutrophils % (A) 64 %; Platelet Count 384 k/uL (150-450); RBC 4.88 m/uL (3.80-5.40); RDW 13.1 % (11.5-15.5)
--- NOTE | 2020-04-07 11:26 | ED ---
Female Urogenital HPI - General Chief complaint: Vaginal Bleeding Stated complaint: 6 wks preg - cramping Time Seen by Provider: 04/07/20 10:38 Source: patient, RN notes reviewed, old records reviewed Mode of arrival: wheelchair Limitations: no limitations - History of Present Illness Initial comments: 25-year-old female presents emergency department today for evaluation for complaints of vaginal bleeding cramping. She presently 6 weeks and Patient is a female. Patient has had no fevers or chills denies dysuria or changes in stools. Patient states that she has noticed some dark red bleeding. Patient is not had ultrasounds or studies on this . Her WINDOWS AND DOORS INSTALLER is Dr. Cartagena. - Related Data Home Medications Medication Instructions Recorded Confirmed Pnv,Calcium 72/Iron/Folic Acid 1 tab PO HS 01/26/19 04/07/20 [ Plus Tablet] Previous Rx's Medication Instructions Recorded Cephalexin [Keflex] 500 mg PO Q8HR #21 cap 04/07/20 Allergies Allergy/AdvReac Type Severity Reaction Status Date / Time No Known Allergies Allergy Verified 04/07/20 11:38 Review of Systems ROS Statement: Those systems with pertinent positive or pertinent negative responses have been documented in the HPI. ROS Other: All systems not noted in ROS Statement are negative. Past Medical History Past Medical History: No Reported History History of Any Multi-Drug Resistant Organisms: None Reported Past Surgical History: Section Past Anesthesia/Blood Transfusion Reactions: No Reported Reaction Past Psychological History: Depression Smoking Status: Never smoker Past Alcohol Use History: None Reported Past Drug Use History: None Reported - Past Family History Mother Family Medical History: No Reported History General Exam - General Exam Comments Initial Comments: 25-year-old female. Alert and oriented 3. No distress. Limitations: no limitations General appearance: alert, in no apparent distress Head exam: Present: atraumatic, normocephalic, normal inspection Eye exam: Present: normal appearance, PERRL, EOMI. Absent: scleral icterus, conjunctival injection, periorbital swelling ENT exam: Present: normal exam, mucous membranes moist Neck exam: Present: normal inspection. Absent: tenderness, meningismus, lymphadenopathy Respiratory exam: Present: normal lung sounds bilaterally. Absent: respiratory distress, wheezes, rales, rhonchi, stridor Cardiovascular Exam: Present: regular rate, normal rhythm, normal heart sounds. Absent: systolic murmur, diastolic murmur, rubs, gallop, clicks GI/Abdominal exam: Present: soft Extremities exam: Present: normal inspection, full ROM, normal capillary refill. Absent: tenderness, pedal edema, joint swelling, calf tenderness Back exam: Present: normal inspection Course Vital Signs 04/07/20 04/07/20 10:38 11:49 Temperature 99.5 F 98.2 F Pulse Rate 110 H 86 Respiratory 16 18 Rate Blood Pressure 177/107 130/84 O2 Sat by Pulse 100 96 Oximetry Medical Decision Making - Medical Decision Making Patient is a 25-year-old female presents today complains of vaginal bleeding for the past 2 days. He is a G2 A1 Patient. Patient has serum hCG of 74,000. She is Rh+. UA was reviewed and negative for infection. She had no bleeding on vaginal exam. Ultrasound showed viable IUP measuring 7 weeks with a heart rate of 1 43 bpm. Patient is formerly results. Discussed local to risk irritable can repeat hCG in the next 2 days. I discussed the Patient should follow up with her [employer]OWS [employer] DOORS INSTALLER. - Lab Data Result diagrams: 04/07/20 11:13 Lab Results 04/07/20 04/07/20 04/07/20 Range/Units 11:13 11:13 11:13 WBC 8.0 (3.8-10.6) k/uL RBC 4.88 (3.80-5.40) m/uL Hgb 13.9 (11.4-16.0) gm/dL Hct 41.4 (34.0-46.0) % MCV 84.9 (80.0-100.0) fL MCH 28.5 (25.0-35.0) pg MCHC 33.6 (31.0-37.0) g/dL RDW 13.1 (11.5-15.5) % Plt Count 384 (150-450) k/uL MPV 6.9 Neutrophils % 64 % Lymphocytes % 28 % Monocytes % 4 % Eosinophils % 2 % Basophils % 1 % Neutrophils # 5.1 (1.3-7.7) k/uL Lymphocytes # 2.2 (1.0-4.8) k/uL Monocytes # 0.3 (0-1.0) k/uL Eosinophils # 0.2 (0-0.7) k/uL Basophils # 0.1 (0-0.2) k/uL HCG, Quant 10610.2 mIU/mL Urine Color Urine Appearance (Clear) Urine pH (5.0-8.0) Ur Specific [place] (1.001-1.035) Urine Protein (Negative) Urine Glucose (UA) (Negative) Urine Ketones (Negative) Urine Blood (Negative) Urine Nitrite (Negative) Urine Bilirubin (Negative) Urine Urobilinogen (<2.0) mg/dL Ur Leukocyte Esterase (Negative) Urine WBC (0-5) /hpf Ur Squamous Epith Cells (0-4) /hpf Urine Bacteria (None) /hpf Urine Mucus (None) /hpf Urine HCG, Qual Detected (Not Detectd) Trichomonas Ag (Rapid) (Negative) Blood Type Blood Type Recheck Bld Type Recheck Status 04/07/20 04/07/20 04/07/20 Range/Units 11:13 11:45 12:03 WBC (3.8-10.6) k/uL RBC (3.80-5.40) m/uL Hgb (11.4-16.0) gm/dL Hct (34.0-46.0) % MCV (80.0-100.0) fL MCH (25.0-35.0) pg MCHC (31.0-37.0) g/dL RDW (11.5-15.5) % Plt Count (150-450) k/uL MPV Neutrophils % % Lymphocytes % % Monocytes % % Eosinophils % % Basophils % % Neutrophils # (1.3-7.7) k/uL Lymphocytes # (1.0-4.8) k/uL Monocytes # (0-1.0) k/uL Eosinophils # (0-0.7) k/uL Basophils # (0-0.2) k/uL HCG, Quant mIU/mL Urine Color Yellow Urine Appearance Clear (Clear) Urine pH 8.0 (5.0-8.0) Ur Specific [place] 1.023 (1.001-1.035) Urine Protein Trace H (Negative) Urine Glucose (UA) Negative (Negative) Urine Ketones Negative (Negative) Urine Blood Negative (Negative) Urine Nitrite Negative (Negative) Urine Bilirubin Negative (Negative) Urine Urobilinogen <2.0 (<2.0) mg/dL Ur Leukocyte Esterase Moderate H (Negative) Urine WBC 3 (0-5) /hpf Ur Squamous Epith Cells 2 (0-4) /hpf Urine Bacteria Rare H (None) /hpf Urine Mucus Rare H (None) /hpf Urine HCG, Qual (Not Detectd) Trichomonas Ag (Rapid) Negative (Negative) Blood Type A Positive Blood Type Recheck A Pos Bld Type Recheck Status No - Radiology Data Radiology results: report reviewed Single viable intrauterine . Corpus luteal noted on the right. Disposition Clinical Impression: Bleeding in early , Bacteriuria during Disposition: HOME SELF-CARE Condition: Good Instructions (If sedation given, give patient instructions): Threatened Miscarriage (ED), Urinary Tract Infection in (ED) Additional Instructions: Repeat blood work in 2 days. Please follow up with family doctor if symptoms have not improved over the next two days. Please return to the emergency room if your symptoms increase or worsen or for any other concerns. Prescriptions: Cephalexin [Keflex] 500 mg PO Q8HR #21 cap Is patient prescribed a controlled substance at d/c from ED?: No Referrals: Nonstaff,Physician [REFERRING] - 1-2 days Time of Disposition: 12:50
[2020-04-07 11:50] VITALS: BP 130/84; PULSE 86; RESP 18; TEMP 98.2
--- NOTE | 2020-04-07 11:59 | US ---
EXAMINATION TYPE: Transabdominal DATE OF EXAM: 04/07/2020 11:31 AM COMPARISON: NONE CLINICAL HISTORY: pain, poss transvag r/o ectopic. RLQ pain, cramping, spotting, EXAM PERFORMED: OBTA EXAM MEASUREMENTS: GESTATIONAL AGE / DATING Physician Established: Not yet established Dates by LMP: (6 weeks/5 days) EDC: 11/26/2020 Dates by First Scan: No previous this is first scan Dates by Current Scan for: (7 weeks/ days) EDC: 11/23/2020 MATERNAL ANATOMY Uterus: 8.9 x 5.8 x 4.7cm Right Ovary: 2.6 x 3.6 x 2.8cm Left Ovary: 3.0 x 2.4 x 1.8cm Post CDS / Adnexa: wnl Presence of free fluid: no Presence of corpus luteal cyst: yes, right side 1.7cm Presence of subchorionic bleed: no GESTATION / SURVEY CRL: 1.0cm (7 weeks/1 days) MSD: wnl Yolk Sac (normal less than 6mm): 0.3cm Heart Rate: 143 bpm Rhythm: Normal IUP: Viable IUP Date of LMP: 02/20/2020 Beta HcG (if available): pending IMPRESSION: Single viable intrauterine . Corpus luteal cyst noted on the right.
[2020-04-07 12:26] LABS: Appearance,Urine Clear (Clear); Bacteria,Urine Rare /hpf; Bilirubin,Urine Negative (Negative); Blood,Urine Negative (Negative); Color,Urine Yellow; Glucose,Urine (UA) Negative (Negative); Ketones,Urine Negative (Negative); Leukocyte Esterase,Urine Moderate (Negative); Mucus,Urine Rare /hpf; Nitrite,Urine Negative (Negative); Protein,Urine Trace (Negative); Specific Gravity,Urine 1.023 (1.001-1.035); Squamous Epithelial Cell,Urine 2 /hpf (0-4); Urobilinogen,Urine <2.0 mg/dL (<2.0); WBC,Urine 3 /hpf (0-5)
== END 2020-04-07 13:16 | disposition home or self-care (01) ==
LOC: EC 10:33
DX: O20.9 Hemorrhage in early pregnancy, unspecified (principal); O26.891 Other specified pregnancy related conditions, first trimester; R82.71 Bacteriuria; Z3A.01 Less than 8 weeks gestation of pregnancy; Z87.59 Personal history of other complications of pregnancy, childbirth and the puerperium
CPT/HCPCS: 36415; 76801; 81001; 81025; 84702; 85025; 86900; 86901; 87070; 87491; 87591; 87808; 99284

== ENCOUNTER → 2020-04-09 | Outpatient (CLI) | payer BC | END | disposition home or self-care (01) | LOC: LABMAIN 11:51 | PROVIDERS: ATTEND Obstetrics & Gynecology | DX: O20.0 Threatened abortion (principal); Z3A.00 Weeks of gestation of pregnancy not specified | CPT/HCPCS: 36415; 84702 ==

== ENCOUNTER 2020-08-22 10:02 | Outpatient (CLI) | payer BC ==
[2020-08-22 11:02] LABS: Appearance,Urine Turbid (Clear); Bilirubin,Urine Negative (Negative); Blood,Urine Negative (Negative); Color,Urine Yellow; Glucose,Urine (UA) 3+ (Negative); Ketones,Urine Negative (Negative); Leukocyte Esterase,Urine Negative (Negative); Mucus,Urine Few /hpf; Nitrite,Urine Negative (Negative); PH, Urine 5.5 (5.0-8.0); Protein,Urine 1+ (Negative); RBC,Urine 2 /hpf (0-5); Specific Gravity,Urine 1.033 (1.001-1.035); Squamous Epithelial Cell,Urine 9 /hpf (0-4); Urobilinogen,Urine <2.0 mg/dL (<2.0); WBC,Urine 3 /hpf (0-5)
[2020-08-22 11:33] LABS: Glucose,Whole Blood 121 mg/dL (75-99)
[2020-08-22 12:51] VITALS: BP 130/72; PULSE 110; RESP 15; TEMP 95.7
--- NOTE | 2020-08-30 02:36 | P.MSEPDOC ---
Presenting Problems - Arrival Data Date of Arrival on Unit: 08/22/20 Time of Arrival on Unit: 10:02 Mode of Transport: Ambulatory - Complaint OB-Reason for Admission/Chief Complaint: Other Comment: FFN Medical History - Information : 2 Para: 1 Term: 1 Number of Living Children: 1 - Gestational Age Gestational Age by GROVER (wks/days): 26 Weeks and 5 Days Review of Systems - Review of Systems Constitutional: No problems Breast: No problems ENT: No problems Cardiovascular: No problems Respiratory: No problems Gastrointestinal: No problems Genitourinary: No problems Musculoskeletal: No problems Neurological: No problems Skin: No problems Vital Signs - Temperature Temperature: 95.7 F Temperature Source: Temporal Artery Scan - Pulse Pulse Oximetery Pulse Rate: 110 Pulse Assessment Method: Pulse Oximetry - Respirations Respiratory Rate: 15 Oxygen Delivery Method: Room Air O2 Sat by Pulse Oximetry: 96 - Blood Pressure Right Arm Blood Pressure: 130/72 Blood Pressure Mean: 91 Blood Pressure Source: Automatic Cuff Medical Screen Scoring (Pre) - Cervical Exam Dilation: Exam Deferred Effacement: Exam Deferred Membranes: Intact - Uterine Contractions Frequency: N/A Duration: N/A Intensity: N/A - Maternal Vital Signs Maternal Temperature: N/A Signs of Preeclampsia: N/A Maternal Respirations: N/A - Maternal Trauma Maternal Trauma: N/A - Assessment - Baby A Baseline FHR: 155 Heart Rate - NICHD Category: Category I (Normal) = 0 Position: N/A Station: N/A - Total Score - Baby A Total Score - Baby A: 0 - Total Score - Baby B Total Score - Baby B: 0 - Total Score - Baby C Total Score - Baby C: 0 - Level of Risk - Baby A Level of Risk - Baby A: Low (0-5) - Level of Risk - Baby B Level of Risk - Baby B: Low (0-5) - Level of Risk - Baby C Level of Risk - Baby C: Low (0-5) Physician Notification (Pre) - Physician Notified Physician Notified Date: 08/22/20 Physician Notified Time: 11:30 New Order Received: Yes - Notification Comment Comment: dc pt home Disposition - Disposition OB Disposition: Discharge to home, Written follow up instructions reviewed Discharge Date: 08/22/20 Discharge Time: 11:34 I agree with the RN Medical Screening Exam: Yes Case reviewed; plan agreed upon as documented in EMR&OBIX.: Yes Diagnosis: FALSE LABOR BEFORE 37 COMPLETED WEEKS OF GEST, SECOND TRI
== END 2020-08-22 11:34 | disposition home or self-care (01) ==
LOC: FBPOP 10:02
PROVIDERS: ATTEND Obstetrics & Gynecology
DX: O60.02 Preterm labor without delivery, second trimester (principal); Z3A.26 26 weeks gestation of pregnancy
CPT/HCPCS: 81001; 82731; 87086

== ENCOUNTER 2020-10-10 14:21 | Outpatient (CLI) | payer BC ==
[2020-10-10 14:58] VITALS: BP 120/73; PULSE 115; RESP 16; TEMP 98.1
--- NOTE | 2020-10-10 15:35 | US ---
EXAMINATION TYPE: US OB BPP wo non-stress DATE OF EXAM: 10/10/2020 COMPARISON: US 04/07/2020 CLINICAL HISTORY: low kushal at office check up. EXAM PERFORMED: Transabdominal (TA) BPP PARAMETERS: PRESENTATION: Vertex LIE: Longitudinal?? HEART RATE: 163 bpm RHYTHM: Normal KUSHAL: 8.8 DIAPHRAGM IMAGED: Yes BPP SCORIN. Breathin (1 episode of breathing of 30 second duration in 30 minutes of scanning time) 2. Movement: 2 (at least 3 discrete body movements in 30 minutes) 3. Tone: 2 (1 episode of active flexion/extension of limb) 4. KUSHAL: 2 (KUSHAL index > 5cm) TOTAL SCORE: 8 / 8 Viable IUP. KUSHAL measuring lower end of normal.
--- NOTE | 2020-10-12 08:59 | P.MSEPDOC ---
Presenting Problems - Arrival Data Date of Arrival on Unit: 10/10/20 Time of Arrival on Unit: 14:21 Mode of Transport: Ambulatory - Complaint OB-Reason for Admission/Chief Complaint: Other Comment: pt sent from office with orders for nst, amnisure and bpp due to u/s results in office of aft being 5.7, pt reports + fm, denies vb/contractions, reports increase in vaginal discharge x 1 week Medical History - Information : 2 Para: 1 Term: 1 : 0 Abortions: Spontaneous or Elective: 0 Number of Living Children: 1 - Gestational Age Gestational Age by GROVER (wks/days): 33 Weeks and 2 Days - History Complications: GDM Review of Systems - Review of Systems Constitutional: No problems Breast: No problems ENT: No problems Cardiovascular: No problems Respiratory: No problems Gastrointestinal: No problems Genitourinary: No problems Musculoskeletal: No problems Neurological: No problems Skin: No problems Vital Signs - Temperature Temperature: 98.1 F Temperature Source: Oral - Pulse Right Brachial Pulse Rate: 115 Pulse Assessment Method: Automatic Cuff - Respirations Respiratory Rate: 16 Oxygen Delivery Method: Room Air O2 Sat by Pulse Oximetry: 98 - Blood Pressure Right Arm Blood Pressure: 120/73 Blood Pressure Mean: 88 Blood Pressure Source: Automatic Cuff Medical Screen Scoring (Pre) - Cervical Exam Dilation: Exam Deferred Effacement: Exam Deferred Membranes: Intact - Uterine Contractions Frequency: N/A Duration: N/A Intensity: N/A - Maternal Vital Signs Maternal Temperature: N/A Maternal Blood Pressure: N/A Signs of Preeclampsia: N/A Maternal Respirations: N/A - Maternal Trauma Maternal Trauma: N/A - Assessment - Baby A Baseline FHR: 150 Heart Rate - NICHD Category: Category I (Normal) = 0 NST: Reactive Position: N/A Station: N/A - Total Score - Baby A Total Score - Baby A: 0 - Total Score - Baby B Total Score - Baby B: 0 - Total Score - Baby C Total Score - Baby C: 0 - Level of Risk - Baby A Level of Risk - Baby A: Low (0-5) - Level of Risk - Baby B Level of Risk - Baby B: Low (0-5) - Level of Risk - Baby C Level of Risk - Baby C: Low (0-5) Physician Notification (Pre) - Physician Notified Physician Notified Date: 10/10/20 Physician Notified Time: 15:24 New Order Received: Yes (dc home) Disposition - Disposition OB Disposition: Discharge to home, Written follow up instructions reviewed Discharge Date: 10/10/20 Discharge Time: 15:35 I agree with the RN Medical Screening Exam: Yes Case reviewed; plan agreed upon as documented in EMR&OBIX.: Yes Diagnosis: FALSE LABOR BEFORE 37 COMPLETED WEEKS OF GEST, THIRD TRI
== END 2020-10-10 15:35 | disposition home or self-care (01) ==
LOC: FBPOP 14:21
PROVIDERS: ATTEND Obstetrics & Gynecology
DX: O47.03 False labor before 37 completed weeks of gestation, third trimester (principal); Z3A.33 33 weeks gestation of pregnancy
CPT/HCPCS: 59025; 76819; 84112

== ENCOUNTER 2020-10-18 11:37 | Outpatient (CLI) | payer BC ==
[2020-10-18 14:01] LABS: Appearance,Urine Cloudy (Clear); Bacteria,Urine Few /hpf; Bilirubin,Urine Negative (Negative); Blood,Urine Negative (Negative); Color,Urine Yellow; Glucose,Urine (UA) Negative (Negative); Ketones,Urine Trace (Negative); Leukocyte Esterase,Urine Moderate (Negative); Mucus,Urine Few /hpf; Nitrite,Urine Negative (Negative); Protein,Urine Trace (Negative); RBC,Urine 1 /hpf (0-5); Specific Gravity,Urine 1.019 (1.001-1.035); Squamous Epithelial Cell,Urine 4 /hpf (0-4); Urobilinogen,Urine <2.0 mg/dL (<2.0); WBC,Urine 4 /hpf (0-5)
[2020-10-18] MEDS: LACTATED RINGERS 1,000 ML IV SCH ×2 (14:15→14:16)
[2020-10-18 16:15] VITALS: BP 126/66; PULSE 110; RESP 16; TEMP 98
--- NOTE | 2020-10-24 07:41 | P.MSEPDOC ---
Presenting Problems - Arrival Data Date of Arrival on Unit: 10/18/20 Time of Arrival on Unit: 11:37 Mode of Transport: Ambulatory - Complaint OB-Reason for Admission/Chief Complaint: Vaginal Bleeding Comment: pt arrived c/o pinkish to light red discharge when she wiped and some small spots of blood in her underwear and c/o cramping Medical History - Information : 2 Para: 1 Term: 1 : 0 Abortions: Spontaneous or Elective: 0 Number of Living Children: 1 - Gestational Age Gestational Age by GROVER (wks/days): 34 Weeks and 3 Days - History Complications: GDM, Prior Review of Systems - Review of Systems Constitutional: No problems Breast: No problems ENT: No problems Cardiovascular: No problems Respiratory: No problems Gastrointestinal: No problems Genitourinary: No problems Musculoskeletal: No problems Neurological: No problems Skin: No problems Vital Signs - Temperature Temperature: 98 F Temperature Source: Oral - Pulse Right Brachial Pulse Rate: 110 Pulse Assessment Method: Automatic Cuff - Respirations Respiratory Rate: 16 Oxygen Delivery Method: Room Air O2 Sat by Pulse Oximetry: 98 - Blood Pressure Right Arm Blood Pressure: 126/66 Blood Pressure Mean: 86 Blood Pressure Source: Automatic Cuff Medical Screen Scoring - Cervical Exam Dilation (cm): 0 Effacement (%): 50 Station: -3 Membranes: Intact - Uterine Contractions Frequency From (mins): 3 Duration From (seconds): 30 Intensity: Mild Resting: Soft to palpation - Assessment - Baby A Baseline FHR: 130 Heart Rate - NICHD Category: Category I (Normal) Physician Notification - Physician Notified Physician Notified Date: 10/18/20 Physician Notified Time: 15:12 Physician: Dr Zamora New Order Received: Yes - Notification Comment Comment: may discharge to home with instructions. pt to keep scheduled follow up appointment with dr zamora 10/25/20 @ 1030 am Maternal Triage Index - Prompt/Priority 3 Prompt Priority 3: Yes Criteria Met for Priority 3: pt rc/s 34 3/7 weeks gestation c/o bleeding and cramping. contractions q 2-3 minutes apart and lasting 30-40 seconds cervix closed thick -3 station. with no blood noted on glove or in underwear. pt iv hydrated. contractions spaced still no active bleeding noted reactive NST Dr Zamora in department throughtout the day and viewed monitor strips. Disposition - Disposition OB Disposition: Discharge to home Discharge Date: 10/18/20 Discharge Time: 15:54 I agree with the RN Medical Screening Exam: Yes Case reviewed; plan agreed upon as documented in EMR&OBIX.: Yes Diagnosis: RELATED CONDITIONS, UNSPECIFIED, THIRD TRIMESTER
== END 2020-10-18 15:54 | disposition home or self-care (01) ==
LOC: FBPOP 11:37
PROVIDERS: ATTEND Obstetrics & Gynecology
DX: O46.93 Antepartum hemorrhage, unspecified, third trimester (principal); Z3A.34 34 weeks gestation of pregnancy
CPT/HCPCS: 59025; 81001; 82731; 96360; 96361; 99213

== ENCOUNTER 2020-11-02 12:21 | Inpatient (IN) | payer BC ==
[2020-11-02] MEDS ORDERED: ceFAZolin 3 GM in SODIUM CHLORIDE 0.9% 100 ML IVPB ONE (14:02)
[2020-11-02] MEDS ORDERED: LACTATED RINGERS 1,000 ML IV ONE (14:02)
[2020-11-02] MEDS ORDERED: CITRIC ACID-SODIUM CITRATE 15 ML CUP PO ONE (14:02)
[2020-11-02] MEDS ORDERED: BETAMET ACET-BETAMETH SOD PHOS 6 MG/ML MDV IM SCH (14:15)
--- NOTE | 2020-11-02 14:21 | US ---
EXAMINATION TYPE: US OB limited DATE OF EXAM: 11/02/2020 COMPARISON: NONE CLINICAL HISTORY: u/s for kushal efw. hx of oligo gest diabetes. 36. EXAM PERFORMED: Transpelvic ultrasound. GESTATIONAL AGE / DATING Physician Established: Not established yet Dates by Current Scan: (35 weeks/5 days) EDC: 12/02/2020 SURVEY KUSHAL: 4.6 cm Oligohydraminos HEART RATE: 142 bpm RHYTHM: Normal BPD: 8.6 cm 34 weeks / 4 days HC: 31.7 cm 35 weeks / 5 days AC: 33.2 cm 37 weeks / 1 days FL: 6.9 cm 35 weeks / 3 days ESTIMATED WEIGHT IN GRAMS: 2887 grams ESTIMATED WEIGHT IN LBS/OZ: 6 lbs. 6 oz. WEIGHT PERCENTAGE BASED ON ESTABLISHED DATES: 45% HC/AC: 0.95 Normal FL/AC: 21% Normal Difficult and limited study due to patient body habitus Viable single IUP measuring 35 weeks 5 days with a heart rate of 142bpm and an estimated delivery aurora e of 12/02/2020 KUSHAL: 4.6cm Oligohydramnios IMPRESSION: Single live intrauterine . Technically limited exam but oligohydramnios is noted.
[2020-11-02] MEDS: LACTATED RINGERS 1,000 ML IV SCH ×2 (14:33→23:47)
[2020-11-02 15:06] LABS: Basophils % (A) 0 %; Eosinophils % (A) 0 %; HGB 10.9 gm/dL (11.4-16.0); Hypochromasia Slight; Lymphocytes # (A) 1.7 k/uL (1.0-4.8); Lymphocytes % (A) 20 %; MCH 26.1 pg (25.0-35.0); MCHC 34.2 g/dL (31.0-37.0); MCV 76.5 fL (80.0-100.0); Mean Platelet Volume 7.5; Microcytosis Slight; Monocytes # (A) 0.5 k/uL (0-1.0); Monocytes % (A) 6 %; Neutrophils # (A) 5.9 k/uL (1.3-7.7); Neutrophils % (A) 72 %; Platelet Count 321 k/uL (150-450); Poikilocytosis Slight; RBC 4.18 m/uL (3.80-5.40); RDW 14.7 % (11.5-15.5); WBC 8.1 k/uL (3.8-10.6)
[2020-11-02] MEDS ORDERED: KETOROLAC 15 MG/ML 1 ML VIAL ONE (16:55)
[2020-11-02] MEDS ORDERED: NALBUPHINE 10 MG/ML (1 ML AMP) ONE ×2 (16:55→18:24)
[2020-11-02] MEDS ORDERED: ONDANSETRON 4 MG/2 ML VIAL ONE ×2 (16:55→18:24)
[2020-11-02] MEDS ORDERED: OXYTOCIN 30 UNITS/500 ML NS BAG IV ONE ×2 (16:55→18:24)
[2020-11-02] MEDS ORDERED: MORPHINE SULFATE (PF) 0.3 MG/0.3 ML SYR ONE ×2 (16:55→18:24)
--- NOTE | 2020-11-02 16:59 | P.HPOB ---
History of Present Illness H&P Date: 11/02/20 Chief Complaint: Oligohydramnios This is a 25-year-old female 2 para 1 with an estimated date of confinement of 11/26/2020, estimated gestational age of 36-4/7 weeks, who presented to labor and delivery with orders from Dr. Zamora to have an NST along with ultrasound for KUSHAL and estimated weight. Ultrasound showed an KUSHAL of 4.6 an estimated weight of 6 lbs. 6 oz. NST was reactive. I spoke with maternal- medicine and they did agree that she should be delivered soon she is over 36 weeks. They did also recommend Celestone for lung maturity. She did receive 1 dose of Celestone in triage. Her has been complicated by gestational diabetes diet controlled. labs: Hepatitis B surface antigen-negative RPR-nonreactive Rubella-immune Blood type-A+ Antibody screen-negative HIV-nonreactive Hemoglobin-13.4 Random glucose-85 Obstetrical ultrasounds-normal anatomy One hour Glucola-160 Three-hour Glucola-2 values high Pap smear-within normal limits GC/chlamydia/Trichomonas-negative Positive group B streptococcus on urine culture. Obstetrical history: . History of 1 section at 37-1/2 weeks for macrosomia with delivery of a 10 lbs. 6 oz. infant. Gynecologic history: Noncontributory Social history: She is and works from home. Review of Systems Constitutional: Denies chills, Denies fever Eyes: denies blurred vision, denies pain Ears, nose, mouth and throat: Denies headache, Denies sore throat Cardiovascular: Denies chest pain, Denies shortness of breath Respiratory: Denies cough Gastrointestinal: Denies abdominal pain, Denies diarrhea, Denies nausea, Denies vomiting Genitourinary: Reports pelvic pain, Reports , Reports vaginal discharge (Has noticed a mucous discharge for a month.), Denies dysuria, Denies hematuria Musculoskeletal: Reports low back pain Integumentary: Denies pruritus, Denies rash Neurological: Denies numbness, Denies weakness Psychiatric: Denies anxiety, Denies depression Past Medical History Past Medical History: No Reported History Additional Past Medical History / Comment(s): Gestational diabetes-diet co ntrolled during this History of Any Multi-Drug Resistant Organisms: None Reported Past Surgical History: Section Past Anesthesia/Blood Transfusion Reactions: No Reported Reaction Past Psychological History: Depression Smoking Status: Never smoker Past Alcohol Use History: None Reported Past Drug Use History: None Reported - Past Family History Mother Family Medical History: No Reported History Medications and Allergies Home Medications Medication Instructions Recorded Confirmed Type Pnv,Calcium 72/Iron/Folic Acid 1 tab PO HS 01/26/19 11/02/20 History [ Plus Tablet] Allergies Allergy/AdvReac Type Severity Reaction Status Date / Time No Known Allergies Allergy Verified 10/18/20 11:53 Exam Osteopathic Statement: *. No significant issues noted on an osteopathic structural exam other than those noted in the History and Physical/Consult. Vital Signs Temp Pulse Resp BP 11/02/20 14:29 98.0 F 89 16 122/64 11/02/20 12:59 97.0 F L 89 16 130/70 Intake and Output 11/02/20 11/02/20 11/02/20 06:59 14:59 22:59 Other: Weight 117.934 kg HEENT: Within normal limits Heart: Regular rate and rhythm Lungs: Clear to auscultation bilaterally Abdomen: heart tones: Reactive, category 1 Contractions: Irregular Extremities: Negative Homans Results Result Diagrams: 11/02/20 14:45 Abnormal Lab Results - Last 24 Hours (Table) 11/02/20 Range/Units 14:45 Hgb 10.9 L (11.4-16.0) gm/dL Hct 32.0 L (34.0-46.0) % MCV 76.5 L (80.0-100.0) fL Assessment and Plan (1) 36 weeks gestation of Current Visit: Yes Status: Acute Code(s): Z3A.36 - 36 WEEKS GESTATION OF SNOMED Code(s): 15748805 (2) Oligohydramnios Current Visit: Yes Status: Acute Code(s): O41.00X0 - OLIGOHYDRAMNIOS, UNSP TRIMESTER, NOT APPLICABLE OR UNSP SNOMED Code(s): 26169127 (3) Previous delivery affecting Current Visit: Yes Status: Acute Code(s): O34.219 - MATERNAL CARE FOR UNSP TYPE SCAR FROM PREVIOUS DEL SNOMED Code(s): 945865243 (4) Gestational diabetes Current Visit: Yes Status: Acute Code(s): O24.419 - GESTATIONAL DIABETES MELLITUS IN , UNSP CONTROL SNOMED Code(s): 14489827 Plan: Admission for planned section due to oligohydramnios. One dose of Celestone is given while she is in triage. Spoke with Dr. Patton at maternal- medicine who states she should be delivered at this gestational age due to oligohydramnios. I have discussed the risks, benefits, and alternative therapies for the above- mentioned procedure and for both sedation/anesthesia as well as necessary blood products administration, if indicated, as they pertain to this patient. The patient has indicated her understanding and acceptance of the risks and proce dures discussed.
--- NOTE | 2020-11-02 17:52 | P.OP ---
Date of Procedure: 11/02/20 Preoperative Diagnosis: 1. Intrauterine at 36-4/7 weeks. 2. Oligohydramnios. 3. Gestational diabetes. 4. History of previous section. Postoperative Diagnosis: Same Procedure(s) Performed: Repeat low transverse section Anesthesia: spinal (Duramorph) Surgeon: Lauren Carroll Stabber #1: Sharri Cisneros Estimated Blood Loss (ml): 400 Pathology: other (Placenta) Condition: stable Disposition: floor Indications for Procedure: This is a 25-year-old female 2 para 1 at 36-4/7 weeks who presented to triage for scheduled nonstress test with KUSHAL and estimate a weight. Her KUSHAL came back at 4.6 cm. In light of these findings, the decision is made to proceed with repeat section per [facility] recommendations. I have discussed the risks, benefits, and alternative therapies for the above- mentioned procedure and for both sedation/anesthesia as well as necessary blood products administration, if indicated, as they pertain to this patient. The patient has indicated her understanding and acceptance of the risks and procedures discussed. Operative Findings: A viable female is noted in the vertex presentation with nuchal cord times one and scores of 8 at 1 minute and 9 at 5 minutes and infant weight of 8 lbs. 3 oz. Normal uterus tubes and ovaries are noted. Clear fluid is noted. Description of Procedure: The patient is taken to the operating room where she is placed in the dorsal supine position with leftward tilt after spinal Duramorph anesthesia is given. Rod catheter is inserted. She is prepped and draped in the normal sterile fashion. Timeout procedure was performed. Skin was tested and found to be adequately anesthetized. A Pfannenstiel skin incision was made with a scalpel through the previous laparotomy scar. A second knife was used to carry the incision down to the underlying layer of fascia. The fascia was nicked in the midline with a scalpel and then extended laterally bilaterally with Mina scissors. The anterior lip of the fascia was grasped with 2 Bharat clamps and then dissected off the underlying rectus muscle in the midline with Mina scissors. The inferior aspect of the fascial incision was grasped with 2 Bharat clamps and dissected off the underlying rectus muscle and the midline with Mina scissors. Next the peritoneum layer was tented up with 2 hemostats and then entered sharply with the scalpel. The incision is extended superiorly and inferiorly with Metzenbaum scissors. Next a DeLee retractor is placed. The vesicouterine peritoneum is entered sharply with Metzenbaum scissors and extended laterally bilaterally with Metzenbaum scissors and then the bladder flap is pushed inferiorly. The lower uterine segment is incised in transverse fashion with the scalpel and then bluntly entered with a hemostat. Clear fluid is noted. The incision was then extended laterally bilaterally with 2 fingers. Next the infant's head is delivered through the incision. Nose and mouth are bulb suctioned. Nuchal cord 1 is reduced around the 's head. The remainder of the infant is easily delivered and placed on mother's abdomen. Cord is clamped and cut. is taken to warmer by nursing staff. Uterine fundus is gently massaged and placenta is delivered manually. Uterus is exteriorized and cleared of all clots and debris. Uterine incision is closed with 0 Vicryl suture in a running locked fashion. A second layer of 0 Vicryl suture is used in a running fashion for hemostasis. Once adequate hemostasis as assured, the vesicouterine peritoneum is reapproximated with 2-0 Vicryl suture in a running fashion. Posterior cul-de-sac is suctioned of all clots and debris. Uterus is returned to the abdomen. Incision is noted to be hemostatic. Peritoneal layer is closed with 0 Vicryl suture in a running fashion. Muscle layer is reapproximated with 0 Vicryl suture in interrupted fashion. Fascia layer is then closed with 0 PDS suture with 2 sutures meeting in the midline and the knots buried in either side and in the midline. The subcutaneous tissue was then closed with 2-0 Vicryl suture. Skin layer was then closed with damaris. All sponge and needle counts are correct. The patient is taken to recovery room in stable condition.
--- NOTE | 2020-11-02 18:01 | P.MSEPDOC ---
Presenting Problems - Arrival Data Date of Arrival on Unit: 11/02/20 Time of Arrival on Unit: 14:45 Mode of Transport: Portable - Complaint OB-Reason for Admission/Chief Complaint: Other Comment: sent per dr for nst and u/s jack & efw Medical History - Information : 2 Para: 1 Term: 1 : 0 Abortions: Spontaneous or Elective: 0 Number of Living Children: 1 - Gestational Age Gestational Age by GORVER (wks/days): 36 Weeks and 4 Days - History Complications: Other Review of Systems - Review of Systems Constitutional: No problems Breast: No problems ENT: No problems Cardiovascular: No problems Respiratory: No problems Gastrointestinal: No problems Genitourinary: No problems Musculoskeletal: No problems Neurological: No problems Skin: No problems Vital Signs - Temperature Temperature: 98.0 F Temperature Source: Temporal Artery Scan - Pulse Right Apical Pulse Rate: 89 Pulse Assessment Method: Automatic Cuff - Respirations Respiratory Rate: 16 Oxygen Delivery Method: Room Air - Blood Pressure Right Arm Blood Pressure: 122/64 Blood Pressure Mean: 83 Blood Pressure Source: Automatic Cuff Medical Screen Scoring - Cervical Exam Membranes: Intact - Assessment - Baby A Baseline FHR: 150 Heart Rate - NICHD Category: Category I (Normal) NST: Reactive Physician Notification - Physician Notified Physician Notified Date: 11/02/20 Physician Notified Time: 13:30 Physician: Lauren Carroll Order Received: Yes - Notification Comment Comment: adm for r c/s. jack=4.6. orders for iv and celestone given. pt moved to st 18. Maternal Triage Index - Maternal Triage Index Presenting for scheduled procedure w/no complaint: Yes - Scheduled/Requesting Priority 5 Scheduled/Requesting Priority 5: Yes Criteria Met for Priority 5: sent from office with dr reese from dr nieves for nst/us jack&efw. 36 weeks. gest diabetes - diet controlled. hx of oligo. repeat c/s scheduled for 11/20/2020 Disposition - Disposition OB Disposition: Admit Transferred to:: st 18 for repeat ceserean section. 36 4/7 weeks gest I agree with the RN Medical Screening Exam: Yes Case reviewed; plan agreed upon as documented in EMR&OBIX.: Yes Diagnosis: OLIGOHYDRAMNIOS, THIRD TRIMESTER, NOT APPLICABLE OR UNSP
[2020-11-02] MEDS ORDERED: HYDROmorphone 2 MG TAB PO PRN (19:06)
[2020-11-02] MEDS ORDERED: LANOLIN CREAM 5 GM TUBE TOPICAL PRN (19:06)
[2020-11-02] MEDS ORDERED: METOCLOPRAMIDE 5 MG/ML 2 ML VIAL IVP PRN (19:06)
[2020-11-02] MEDS ORDERED: HYDROmorphone 1 MG/ML 1 ML SYRINGE IVP PRN (19:06)
[2020-11-02] MEDS ORDERED: ONDANSETRON 4 MG/2 ML VIAL IVP PRN (19:06)
[2020-11-02] MEDS ORDERED: HYDROmorphone 0.2 MG/1 ML SYRINGE IVP PRN (19:06)
[2020-11-02] MEDS ORDERED: NALOXONE 0.4 MG/ML 1 ML VIAL IV PRN (19:06)
[2020-11-02] MEDS ORDERED: ZOLPIDEM 5 MG TAB PO PRN (19:06)
[2020-11-02] MEDS ORDERED: diphenhydrAMINE 25 MG CAP PO PRN (19:06)
[2020-11-02] MEDS ORDERED: diphenhydrAMINE 50 MG CAP PO PRN (19:06)
[2020-11-02] MEDS ORDERED: OXYTOCIN 30 UNITS/500 ML NS 30 UNIT in SALINE 1 500ML.BAG IV SCH (19:06)
[2020-11-02] MEDS ORDERED: SIMETHICONE 80 MG CHEWABLE PO PRN (19:06)
[2020-11-02] MEDS ORDERED: diphenhydrAMINE 50 MG/ML 1 ML VIAL IVP PRN ×2 (19:06)
[2020-11-02] MEDS: SENNOSIDES-DOCUSATE SODIUM 1 EACH TAB PO SCH (23:48)
[2020-11-03 04:19] VITALS: RESP 16
[2020-11-03] MEDS: ACETAMINOPHEN TAB 500 MG TAB PO SCH ×4 (04:21→23:23)
[2020-11-03] MEDS: IBUPROFEN 600 MG TAB PO SCH ×5 (04:22→22:19)
[2020-11-03] MEDS: KETOROLAC 15 MG/ML 1 ML VIAL IVP SCH ×2 (06:34→20:02)
--- NOTE | 2020-11-03 06:46 | P.PN ---
Progress Note - Text Progress Note Date: 11/03/20 Postoperative day 1 status post section under spinal anesthesia, and i ntrathecal morphine given for postoperative analgesia, patient doing well, there is no anesthesia related complications Patient had no headache, vital signs stable Assessment and plan = postop day 1 status post , doing well there is no anesthesia related complication
[2020-11-03 06:48] LABS: Basophils % (A) 0 %; Eosinophils % (A) 0 %; HCT 28.2 % (34.0-46.0); HGB 9.5 gm/dL (11.4-16.0); Hypochromasia Slight; Lymphocytes # (A) 1.6 k/uL (1.0-4.8); Lymphocytes % (A) 11 %; MCHC 33.7 g/dL (31.0-37.0); Mean Platelet Volume 7.7; Monocytes # (A) 0.5 k/uL (0-1.0); Monocytes % (A) 3 %; Neutrophils # (A) 12.5 k/uL (1.3-7.7); Neutrophils % (A) 85 %; Platelet Count 267 k/uL (150-450); Poikilocytosis Slight; RBC 3.67 m/uL (3.80-5.40); RDW 14.6 % (11.5-15.5); WBC 14.7 k/uL (3.8-10.6)
--- NOTE | 2020-11-03 07:24 | P.PNOBGPC ---
Subjective - Subjective Principal diagnosis: Status post repeat low transverse section postoperative day #1 Interval history: Patient is doing well. Her pain is much better than her last . Lochia has been minimal. She is passing flatus but no bowel movement yet. Baby did go to level I nursery and is on oxygen. Patient reports: Reports appetite normal, Reports voiding normally, Reports pain well controlled, Reports ambulating normally : other (In level I nursery) Objective - Vital Signs Latest vital signs: Vital Signs Temp Pulse Resp BP Pulse Ox 11/03/20 04:00 98.1 F 65 16 107/66 97 11/02/20 23:45 97.5 F L 75 16 142/77 97 11/02/20 19:56 95.8 F L 80 18 134/79 99 11/02/20 19:26 97.6 F 59 L 18 125/72 98 11/02/20 18:56 68 16 117/82 11/02/20 18:41 81 16 107/64 97 11/02/20 18:26 87 16 121/66 97 11/02/20 18:11 82 16 127/65 98 11/02/20 18:00 98.0 F 89 16 122/64 11/02/20 17:56 97.2 F L 90 16 118/56 11/02/20 14:29 98.0 F 89 16 122/64 11/02/20 12:59 97.0 F L 89 16 130/70 Intake and Output 11/02/20 11/03/20 11/03/20 22:59 06:59 14:59 Output Total 1300 950 Balance -1300 -950 Output: Urine 1300 950 Uretheral (Rod) 400 Other: Voiding Method Indwelling Catheter - Exam Extremities: Present: normal. Absent: tenderness Abdomen: Present: normal appearance, soft (Positive bowel sounds 4). Absent: distention, tenderness Incision: Present: normal, dry, intact. Absent: erythematous Uterus: Present: normal, firm. Absent: tenderness - Labs Labs: Abnormal Lab Results - Last 24 Hours (Table) 11/02/20 11/03/20 Range/Units 14:45 06: WBC 14.7 H (3.8-10.6) k/uL RBC 3.67 L (3.80-5.40) m/uL Hgb 10.9 L 9.5 L (11.4-16.0) gm/dL Hct 32.0 L 28.2 L (34.0-46.0) % MCV 76.5 L 77.0 L (80.0-100.0) fL Neutrophils # 12.5 H (1.3-7.7) k/uL Assessment and Plan Assessment: Status post repeat low transverse section postoperative day #1 (1) 36 weeks gestation of Current Visit: Yes Status: Acute Code(s): Z3A.36 - 36 WEEKS GESTATION OF SNOMED Code(s): 64046237 (2) Oligohydramnios Current Visit: Yes Status: Acute Code(s): O41.00X0 - OLIGOHYDRAMNIOS, UNSP TRIMESTER, NOT APPLICABLE OR UNSP SNOMED Code(s): 97133040 (3) Previous delivery affecting Current Visit: Yes Status: Acute Code(s): O34.219 - MATERNAL CARE FOR UNSP TYPE SCAR FROM PREVIOUS DEL SNOMED Code(s): 133278081 (4) Gestational diabetes Current Visit: Yes Status: Acute Code(s): O24.419 - GESTATIONAL DIABETES MELLITUS IN , UNSP CONTROL SNOMED Code(s): 33629593 Plan: Continue with postoperative care today. Will advance diet as tolerated.
[2020-11-03] MEDS: SENNOSIDES-DOCUSATE SODIUM 1 EACH TAB PO SCH ×2 (19:33→20:03)
[2020-11-03] MEDS: LACTATED RINGERS 1,000 ML IV SCH (20:02)
[2020-11-04] MEDS: ACETAMINOPHEN TAB 500 MG TAB PO SCH ×4 (01:15→19:19)
[2020-11-04] MEDS: HYDROmorphone 2 MG TAB PO PRN ×2 (01:40→21:12)
[2020-11-04] MEDS: IBUPROFEN 600 MG TAB PO SCH ×4 (04:36→22:36)
[2020-11-04] MEDS: SENNOSIDES-DOCUSATE SODIUM 1 EACH TAB PO SCH ×2 (07:37→19:20)
--- NOTE | 2020-11-04 07:48 | P.PNOBGPC ---
Subjective - Subjective Patient reports: Reports appetite normal, Reports voiding normally, Reports pain well controlled, Reports ambulating normally : doing well Objective - Vital Signs Latest vital signs: Vital Signs Temp Pulse Resp BP Pulse Ox 11/03/20 23:17 97.6 F 70 16 117/77 97 11/03/20 19:56 98.2 F 74 16 127/78 11/03/20 16:00 97.7 F 79 16 127/70 99 11/03/20 08:00 97.5 F L 59 L 16 125/79 98 Intake and Output 11/03/20 11/04/20 11/04/20 22:59 06:59 14:59 Output Total 500 Balance -500 Output: Urine 500 Other: # Voids 1 1 - Exam Lungs: bilateral: normal Chest: Normal S1, Normal S2 Extremities: Present: normal Abdomen: Present: normal appearance, soft. Absent: distention, tenderness Incision: Present: normal, dry, intact Uterus: Present: normal, firm Assessment and Plan Assessment: Post operative day #2. Patient is resting without new complaints wishes to go home. Vital signs are stable and she is afebrile. Her incision is intact and dry. Patient is tolerating regular diet, urinating, ambulating without difficulty. CBC yesterday was consistent with postoperative findings. My impression is a normal postoperative course. Plan is to continue routine postoperative care discharge home later today if her baby is allowed to go home. (1) delivery delivered Current Visit: Yes Status: Acute Code(s): O82 - ENCOUNTER FOR DELIVERY WITHOUT INDICATION SNOMED Code(s): 720879893
--- NOTE | 2020-11-04 07:56 | P.DS ---
Providers Date of admission: 11/02/20 13:44 Expected date of discharge: 11/04/20 Attending physician: Presley Zamora Primary care physician: Stated None - Discharge Diagnosis(es) (1) delivery delivered Current Visit: Yes Status: Acute Hospital Course: Please see dictated H&P per Dr. Carroll on this patient's admission. Brief summary this is a pleasant 25-year-old 2 para 1 female 36-1/2 weeks gestation who is admitted for delivery secondary to oligohydramnios. Patient undergoes a repeat low transverse section for viable female . Again, please see dictated operative note per Dr. Carroll on this surgery. Postoperatively this patient does well and on postoperative 2 she felt be stable for discharge home follow up Dr. Zamora in 1 week. Procedures: Repeat low transverse section Patient Condition at Discharge: Good Plan - Discharge Summary New Discharge Prescriptions: New Ibuprofen [Motrin] 600 mg PO Q6H #40 tab No Action Pnv,Calcium 72/Iron/Folic Acid [ Plus Tablet] 1 tab PO HS Discharge Medication List Pnv,Calcium 72/Iron/Folic Acid [ Plus Tablet] 1 tab PO HS 01/26/19 [History] Ibuprofen [Motrin] 600 mg PO Q6H #40 tab 11/04/20 [Rx] Follow up Appointment(s)/Referral(s): Presley Zamora DO [Doctor of Osteopathic Medicine] - 12/12/20 3:00 pm (November 20, 2020 at 08:00 a.m.) Patient Instructions/Handouts: (DC) Activity/Diet/Wound Care/Special Instructions: No strenuous activity or heavy lifting for 6 weeks. Please call if any fever, chills, excessive vaginal bleeding, and/or abdominal pain. No intercourse or anything per vagina for 6 weeks. Discharge Disposition: HOME SELF-CARE
[2020-11-05] MEDS: ACETAMINOPHEN TAB 500 MG TAB PO SCH ×2 (02:14→08:18)
[2020-11-05] MEDS: IBUPROFEN 600 MG TAB PO SCH ×2 (05:09→10:50)
[2020-11-05] MEDS: SENNOSIDES-DOCUSATE SODIUM 1 EACH TAB PO SCH (08:05)
--- NOTE | 2020-11-05 08:11 | P.PNOBGPC ---
Subjective - Subjective Patient reports: Reports appetite normal, Reports voiding normally, Reports pain well controlled, Reports ambulating normally : doing well Objective - Vital Signs Latest vital signs: Vital Signs Temp Pulse Resp BP 11/05/20 00:00 68 16 121/82 11/04/20 16:00 97.8 F 84 16 130/63 - Exam Lungs: bilateral: normal Chest: Normal S1, Normal S2 Extremities: Present: normal Abdomen: Present: normal appearance, soft. Absent: distention, tenderness Incision: Present: normal, dry, intact Uterus: Present: normal, firm Assessment and Plan Assessment: Patient initially wished to go home yesterday however the director loan didn't require that the baby stay another day. Discharge therefore was canceled she will go home today. She's having no new complaints. Vital signs are stable and she is afebrile. We'll continue routine postoperative care until discharge. (1) delivery delivered Current Visit: Yes Status: Acute Code(s): O82 - ENCOUNTER FOR DELIVERY WITHOUT INDICATION SNOMED Code(s): 041016956
[2020-11-05 08:34] VITALS: BP 127/76; PULSE 81; TEMP 98.3
== END 2020-11-05 12:35 | disposition home or self-care (01) | DRG 787 ==
LOC: FBPOP 12:21 → 4FBP 13:44
PROVIDERS: ADMIT Obstetrics & Gynecology; ATTEND Obstetrics & Gynecology
PROC: 10D00Z1 Extraction of Products of Conception, Low, Open Approach (ICD-10-PCS; principal; 2020-11-02 16:30)
DX: O34.211 Maternal care for low transverse scar from previous cesarean delivery (principal); O41.03X0 Oligohydramnios, third trimester, not applicable or unspecified; O24.420 Gestational diabetes mellitus in childbirth, diet controlled; O69.81X0 Labor and delivery complicated by cord around neck, without compression, not applicable or unspecified; Z37.0 Single live birth; Z3A.36 36 weeks gestation of pregnancy
CPT/HCPCS: 76815; 85025; 86850; 86900; 86901; 88307